=== PATIENT | female | born 1935 | race Caucasian/White ===

== ENCOUNTER → 2017-04-28 | Outpatient (CLI) | payer MEDICARE ==
--- NOTE | 2017-04-28 13:12 | XR ---
EXAMINATION TYPE: XR abdomen 1V DATE OF EXAM: 04/28/2017 COMPARISON: 08/19/2016 HISTORY: Right-sided pain TECHNIQUE: One view abdominal series FINDINGS: The osseous structures are intact. The bowel gas pattern is nonspecific. Extensive retained fecal de bris. Scoliosis and multilevel degenerative disc disease noted. Calcifications the pelvis are nonspec ific and there is arthropathy of the hips. IMPRESSION: 1. Nonspecific abdomen
== END | disposition home or self-care (01) ==
LOC: RADXRMAIN 12:42
PROVIDERS: ATTEND Urology
DX: N20.0 Calculus of kidney (principal)
CPT/HCPCS: 74000

== ENCOUNTER 2018-02-23 06:10 | Emergency (ER) | payer MEDICARE ==
[2018-02-23 06:16] VITALS: RESP 16
[2018-02-23] MEDS ORDERED: SODIUM CHLORIDE 0.9% 1,000 ML IV STA ×2 (08:06)
[2018-02-23] MEDS ORDERED: KETOROLAC 30 MG/ML 1 ML VIAL IVP STA (08:06)
[2018-02-23] MEDS ORDERED: ORPHENADRINE 30 MG/ML 2 ML VIAL IVP STA (08:07)
[2018-02-23 08:48] LABS: Basophils % (A) 0 %; Eosinophils # (A) 0.1 k/uL (0-0.7); Eosinophils % (A) 2 %; HCT 45.8 % (34.0-46.0); Lymphocytes # (A) 1.3 k/uL (1.0-4.8); Lymphocytes % (A) 21 %; MCH 32.3 pg (25.0-35.0); MCHC 32.8 g/dL (31.0-37.0); MCV 98.6 fL (80.0-100.0); Mean Platelet Volume 7.3; Monocytes # (A) 0.5 k/uL (0-1.0); Monocytes % (A) 8 %; Neutrophils # (A) 4.3 k/uL (1.3-7.7); Neutrophils % (A) 68 %; Platelet Count 276 k/uL (150-450); RBC 4.64 m/uL (3.80-5.40); RDW 12.9 % (11.5-15.5); WBC 6.2 k/uL (3.8-10.6)
[2018-02-23 08:53] LABS: Appearance,Urine Clear (Clear); Bacteria,Urine Many /hpf; Bilirubin,Urine Negative (Negative); Blood,Urine Negative (Negative); Color,Urine Light Yellow; Glucose,Urine (UA) Negative (Negative); Ketones,Urine Negative (Negative); Leukocyte Esterase,Urine Small (Negative); Mucus,Urine Rare /hpf; Nitrite,Urine Negative (Negative); PH, Urine 7.5 (5.0-8.0); Protein,Urine Negative (Negative); Specific Gravity,Urine 1.004 (1.001-1.035); Squamous Epithelial Cell,Urine <1 /hpf (0-4); Urobilinogen,Urine <2.0 mg/dL (<2.0); WBC,Urine 1 /hpf (0-5)
[2018-02-23 08:55] LABS: Albumin 3.4 g/dL (3.5-5.0); Calcium 8.7 mg/dL (8.4-10.2); Potassium 4.4 mmol/L (3.5-5.1); Total Bilirubin 0.4 mg/dL (0.2-1.3); Total Protein 5.6 g/dL (6.3-8.2)
--- NOTE | 2018-02-23 09:03 | ED ---
Back Pain HPI <Parish Ballesteros - Last Filed: 02/23/18 11:08> - General Source: patient, RN notes reviewed, old records reviewed Limitations: no limitations <Madiha Muñoz - Last Filed: 02/24/18 13:57> - General Chief Complaint: Back Pain/Injury Stated Complaint: Back Pain Time Seen by Provider: 02/23/18 07:46 - History of Present Illness Initial Comments: Patient is an 82-year-old female presents emergency Department chief complaint of lower back pain. Patient reports that she's had a history of kidney stones feel like her sent in with similar to today's appears reports a history of urinary incontinence. She states that now she feels like the urgency to go to the bathroom. She denies any fever or chills. No nausea or vomiting. She states the pain started yesterday evening and she thought it was more muscle issue but then it persisted she was concerned maybe of a kidney stone again. Her urologist is Dr. Park. (Madiha Muñoz) - Related Data Home Medications Medication Instructions Recorded Confirmed Diltiazem HCl [Diltiazem 24Hr ER] 180 mg PO DAILY 07/04/15 02/23/18 Pravastatin Sodium [Pravachol] 40 mg PO HS 07/04/15 02/23/18 Aspirin 81 mg PO DAILY 08/12/15 02/23/18 Fluticasone Nasal [place] [Flonase 2 spray EA NOSTRIL DAILY PRN 08/13/15 02/23/18 Nasal [place]] Apixaban [Eliquis] 2.5 mg PO BID 02/23/18 02/23/18 Previous Rx's Medication Instructions Recorded Cyclobenzaprine [Flexeril] 10 mg PO TID #12 tab 02/23/18 HYDROcodone/APAP 5-325MG [[place] 1 tab PO Q6HR PRN #10 tab 02/23/18 5-325] Nitrofurantoin Monohyd/M-Cryst 100 mg PO Q12HR #14 cap 02/23/18 [Macrobid] Allergies Allergy/AdvReac Type Severity Reaction Status Date / Time codeine Allergy Rash/Hives Verified 02/23/18 07:53 amoxicillin trihydrate AdvReac Nausea & Verified 02/23/18 07:53 [From Augmentin] Vomiting & Diarrhea potassium clavulanate AdvReac Nausea & Verified 02/23/18 07:53 [From Augmentin] Vomiting & Diarrhea Review of Systems ROS Other: All systems not noted in ROS Statement are negative. <Parish Ballesteros - Last Filed: 02/23/18 11:08> ROS Other: All systems not noted in ROS Statement are negative. <WandaMerryMadiha - Last Filed: 02/24/18 13:57> ROS Statement: Those systems with pertinent positive or pertinent negative responses have been documented in the HPI. Past Medical History Past Medical History: Atrial Fibrillation, Asthma, Hyperlipidemia, Myocardial Infarction ([place]), Pneumonia Additional Past Medical History / Comment(s): kidney stone, uti's most recently tx 05-28-16 with macrobid that didn't work and then levaquin-completed the abx., falls Last Myocardial Infarction Date:: 2010 History of Any Multi-Drug Resistant Organisms: ESBL Date of last positivie culture/infection: 06/10/16 MDRO Source:: urine E.coli Past Surgical History: Heart Catheterization With Stent, Joint Replacement, Tonsillectomy Additional Past Surgical History / Comment(s): SOTO KNEE REPLACEMENT, KIDNEY STONE REMOVAL Past Anesthesia/Blood Transfusion Reactions: No Reported Reaction Date of Last Stent Placement:: 2010 Past Psychological History: No Psychological Hx Reported Smoking Status: Never smoker - Past Family History Mother Family Medical History: Cancer Additional Family Medical History / Comment(s): breast cancer at age 75-lived to be 94 Father Family Medical History: Congestive Heart Failure (CHF) Additional Family Medical History / Comment(s): from CHF <Madiha Muñoz - Last Filed: 02/24/18 13:57> General Exam <Parish Ballesteros - Last Filed: 02/23/18 11:08> Limitations: no limitations Head exam: Present: atraumatic, normocephalic, normal inspection Eye exam: Present: normal appearance, PERRL, EOMI. Absent: scleral icterus, conjunctival injection, periorbital swelling ENT exam: Present: normal exam, mucous membranes moist Neck exam: Present: normal inspection. Absent: tenderness, meningismus, lymphadenopathy Respiratory exam: Present: normal lung sounds bilaterally. Absent: respiratory distress, wheezes, rales, rhonchi, stridor Cardiovascular Exam: Present: regular rate, normal rhythm, normal heart sounds. Absent: systolic murmur, diastolic murmur, rubs, gallop, clicks GI/Abdominal exam: Present: soft, tenderness (suprapubic), normal bowel sounds. Absent: distended, guarding, rebound, rigid Extremities exam: Present: normal inspection, full ROM, normal capillary refill. Absent: tenderness, pedal edema, joint swelling, calf tenderness Back exam: Present: normal inspection, tenderness (lumbar spinal tenderness) Neurological exam: Present: alert, oriented X3, CN II-XII intact Psychiatric exam: Present: normal affect, normal mood Skin exam: Present: warm, dry, intact, normal color. Absent: rash <Madiha Muñoz - Last Filed: 02/24/18 13:57> - General Exam Comments Initial Comments: 82-year-old female. Alert and oriented. Laying in stretcher comfortably. No acute distress. (Madiha Muñoz) Course <Parish Ballesteros - Last Filed: 02/23/18 11:08> <Madiha Muñoz - Last Filed: 02/24/18 13:57> Vital Signs 02/23/18 02/23/18 06:13 10:47 Temperature 97.6 F 98.1 F Pulse Rate 88 82 Respiratory 16 16 Rate Blood Pressure 134/79 164/75 O2 Sat by Pulse 96 Oximetry - Reevaluation(s) Reevaluation #1: 02/23/18 10:42 PA supervision: I did personally evaluate the patient presentation and care and do agree with the assessment including the history and physical as well as the plan. Imaging shows no evidence of acute findings lab work was essentially unremarkable. 02/23/18 11:08 (Parish Ballesteros) Medical Decision Making - Lab Data Result diagrams: 02/23/18 07:13 02/23/18 07:13 <Parish Ballesteros - Last Filed: 02/23/18 11:08> - Lab Data Result diagrams: 02/23/18 07:13 02/23/18 07:13 - Radiology Data Radiology results: report reviewed <Madiha Muñoz - Last Filed: 02/24/18 13:57> - Medical Decision Making 82-year-old feel presents return to play and lower back pain to the pubic pain. Complains of urinary frequency and dysuria. Patient's labwork was reviewed and unremarkable. She did have during her urine. We'll send this for culture. Patient for UTI preemptively. She is incontinent. Started on Macrobid. The rest of her lab work was unremarkable. I did complete a CT abdomen and pelvis without contrast. No evidence of kidney stones or any intra-abdominal abnormalities. Patient's pain. She does have degenerative disc disease and facet arthropathy L2-L3. CT report is concluded in chart. Inform Patient of the results. Most likely muscular skeletal origin for patient's pain. We'll discharge her with muscle relaxers and pain medication. Advised to follow-up with PCP. All questions answered return parameters were discussed. (Madiha Muñoz) - Lab Data Lab Results 02/23/18 02/23/18 02/23/18 Range/Units 07:13 07:13 07:13 WBC 6.2 (3.8-10.6) k/uL RBC 4.64 (3.80-5.40) m/uL Hgb 15.0 (11.4-16.0) gm/dL Hct 45.8 (34.0-46.0) % MCV 98.6 (80.0-100.0) fL MCH 32.3 (25.0-35.0) pg MCHC 32.8 (31.0-37.0) g/dL RDW 12.9 (11.5-15.5) % Plt Count 276 (150-450) k/uL Neutrophils % 68 % Lymphocytes % 21 % Monocytes % 8 % Eosinophils % 2 % Basophils % 0 % Neutrophils # 4.3 (1.3-7.7) k/uL Lymphocytes # 1.3 (1.0-4.8) k/uL Monocytes # 0.5 (0-1.0) k/uL Eosinophils # 0.1 (0-0.7) k/uL Basophils # 0.0 (0-0.2) k/uL Sodium 141 (137-145) mmol/L Potassium 4.4 (3.5-5.1) mmol/L Chloride 106 (98-107) mmol/L Carbon Dioxide 27 (22-30) mmol/L Anion Gap 8 mmol/L BUN 15 (7-17) mg/dL Creatinine 0.83 (0.52-1.04) mg/dL Est GFR (CKD-EPI)AfAm 77 (>60 ml/min/1.73 sqM) Est GFR (CKD-EPI)NonAf 67 (>60 ml/min/1.73 sqM) Glucose 92 (74-99) mg/dL Calcium 8.7 (8.4-10.2) mg/dL Total Bilirubin 0.4 (0.2-1.3) mg/dL AST 16 (14-36) U/L ALT 27 (9-52) U/L Alkaline Phosphatase 59 (38-126) U/L Total Protein 5.6 L (6.3-8.2) g/dL Albumin 3.4 L (3.5-5.0) g/dL Urine Color Light Yellow Urine Appearance Clear (Clear) Urine pH 7.5 (5.0-8.0) Ur Specific [place] 1.004 (1.001-1.035) Urine Protein Negative (Negative) Urine Glucose (UA) Negative (Negative) Urine Ketones Negative (Negative) Urine Blood Negative (Negative) Urine Nitrite Negative (Negative) Urine Bilirubin Negative (Negative) Urine Urobilinogen <2.0 (<2.0) mg/dL Ur Leukocyte Esterase Small H (Negative) Urine WBC 1 (0-5) /hpf Ur Squamous Epith Cells <1 (0-4) /hpf Urine Bacteria Many H (None) /hpf Urine Mucus Rare H (None) /hpf - Radiology Data CT abdomen and pelvis without contrast shows evidence of moderate multilevel degenerative changes within the osseous structures with moderate to severe neural foraminal narrowing of L2-L3 on the left and grade 1 anterolisthesis of L4-L5. Likely on a degenerative basis. No acute fractures seen or malalignment comparison to prior. Colonic stasis and small bowel feces sign may relate to ileus or incompetent ileocecal valve. No evidence of bowel obstruction resolution the previous seen hydronephrosis. (Madiha Muñoz) Disposition <Parish Ballesteros - Last Filed: 02/23/18 11:08> Is patient prescribed a controlled substance at d/c from ED?: Yes When asked, does pt state using other controlled substances?: No If prescribed controlled substance>3 days was MAPS reviewed?: Yes If opioid is for acute pain is fill amount 7 days or less?: Yes If Rx opioid, was Start Talking consent form obtained?: No Time of Disposition: 10:21 <Madiha Muñoz - Last Filed: 02/24/18 13:57> Clinical Impression: Back pain, UTI (urinary tract infection), DDD (degenerative disc disease) Disposition: HOME SELF-CARE Condition: Good Instructions: Acute Low Back Pain (ED) Additional Instructions: Follow up with PCP and return to ED if any alarming signs or symptoms occur. Take medication as prescribed. Prescriptions: Cyclobenzaprine [Flexeril] 10 mg PO TID #12 tab HYDROcodone/APAP 5-325MG [[place] 5-325] 1 tab PO Q6HR PRN #10 tab PRN Reason: Pain Nitrofurantoin Monohyd/M-Cryst [Macrobid] 100 mg PO Q12HR #14 cap Referrals: None,Stated [Primary Care Provider] - 1-2 days Karlie Chowdhury MD [STAFF PHYSICIAN] - 1-2 days
--- NOTE | 2018-02-23 09:30 | CT ---
EXAMINATION TYPE: CT abdomen pelvis wo con DATE OF EXAM: 02/23/2018 COMPARISON: 06/11/2016 HISTORY: Low back pain CT DLP: 524.5 mGycm Automated exposure control for dose reduction was used. TECHNIQUE: Helical acquisition of images was performed from the lung bases through the pelvis. FINDINGS: LUNG BASES: No significant abnormality is appreciated. Coronary artery and mitral valve as well as de scending thoracic artery calcifications are partially visualized. A small hiatal hernia is seen. Subc utaneous nodule of the inferior chest overlying the xiphoid process could relate to a sebaceous cyst. LIVER/GB: There is a nodular contour of the liver peripherally suggesting underlying hepatocellular d isease. Small paraesophageal varices are also seen. No cholelithiasis. PANCREAS: Mild pancreatic parenchyma atrophy without ductal dilatation. SPLEEN: No significant abnormality is seen. ADRENALS: No significant abnormality is seen. KIDNEYS: There is been removal of the right ureteral stent in the interim. 2 mm right lower pole nono bstructing renal calculus is present. Bilateral lobulated appearance of kidneys is seen in evaluation for renal masses suboptimal given lack of intravenous contrast. Previously seen right-sided hydronep hrosis has resolved in the interim. No ureteral dilatation or urinary bladder calculi are seen. FREE AIR: No free air is visualized RETROPERITONEAL ADENOPATHY: No greater than 1 cm short axis lymph nodes are noted within the abdomen or pelvis. URINARY BLADDER: No significant abnormality is seen. The previously seen punctate focus of air has r esolved. OSSEOUS STRUCTURES: Moderate degenerative changes of the thoracolumbar spine, femoral acetabular johnnie nts and sacroiliac joints are seen. There is grade 1 anterolisthesis of L4 on L5, likely on a degener ative basis as this was present on the prior of 06/11/2016. There are at least disc bulges from L1 th rough S1 with no significant neural foraminal narrowing at L2-L3 on the left (moderate to severe). BOWEL: Numerous colonic diverticula are present without pericolonic fat stranding. Small bowel feces sign is seen within nondilated loops of small bowel in the low pelvis. Cecal positioning is similar to the prior. Small bowel feces sign is also noted within the terminal ileum which may relate to an i ncompetent ileocecal valve with reflux or ileus. No large or small bowel dilatation. Fecal stasis is again noted. OTHER: There is a small fat filled umbilical hernia. Presacral edema has nearly resolved. Moderate ca lcific atheromatous changes are seen of the abdominal aorta and its branches, which is normal course and caliber. IMPRESSION: 1. IN REGARDS TO THE PATIENT'S BACK PAIN THERE ARE MODERATE MULTILEVEL DEGENERATIVE CHANGES OF THE OS SEOUS STRUCTURES WITH MODERATE TO SEVERE NEURAL FORAMINAL NARROWING AT L2-L3 ON THE LEFT AND GRADE 1 ANTEROLISTHESIS OF L4 ON L5, LIKELY ON A DEGENERATIVE BASIS. NO ACUTE FRACTURE IS SEEN OR NEW MALALIG NMENT IN COMPARISON TO THE PRIOR. 2. COLONIC STASIS AND SMALL BOWEL FECES SIGN THAT MAY RELATE TO ILEUS OR INCOMPETENT ILEOCECAL VALVE. . NO EVIDENCE OF BOWEL OBSTRUCTION. 3. RESOLUTION THE PREVIOUSLY SEEN HYDRONEPHROSIS. BILATERAL LOBULATED CONTOUR OF THE KIDNEYS IS AGAIN SEEN, INCOMPLETELY EVALUATED WITHOUT INTRAVENOUS CONTRAST. THIS PATIENT CANNOT RECEIVE CONTRAST ULTR ASOUND COULD BE PERFORMED FOR EVALUATION OF RENAL MASS ON A NONEMERGENT BASIS.
[2018-02-23] MEDS ORDERED: HYDROcodone/APAP 5-325MG 1 EACH TAB PO STA (10:11)
[2018-02-23 10:49] VITALS: BP 164/75; PULSE 82; TEMP 98.1
== END 2018-02-23 10:49 | disposition home or self-care (01) ==
LOC: EC 06:10
DX: N39.0 Urinary tract infection, site not specified (principal); M51.36 Other intervertebral disc degeneration, lumbar region; M47.816 Spondylosis without myelopathy or radiculopathy, lumbar region; M99.73 Connective tissue and disc stenosis of intervertebral foramina of lumbar region; M43.16 Spondylolisthesis, lumbar region; K59.8 Other specified functional intestinal disorders; M46.96 Unspecified inflammatory spondylopathy, lumbar region; I48.91 Unspecified atrial fibrillation; E78.5 Hyperlipidemia, unspecified; J45.909 Unspecified asthma, uncomplicated; I25.2 Old myocardial infarction; Z79.01 Long term (current) use of anticoagulants; Z79.82 Long term (current) use of aspirin; Z79.899 Other long term (current) drug therapy; Z88.0 Allergy status to penicillin; Z88.5 Allergy status to narcotic agent
CPT/HCPCS: 99284; 96374; 96375; 96361 ×2; 36415; 80053; 85025; 81001; 87086; 74176; J2360; J1885

== ENCOUNTER → 2018-09-05 | Outpatient (CLI) | payer MEDICARE ==
[2018-09-05 10:58] LABS: Blood Urea Nitrogen 18 mg/dL (7-17)
--- NOTE | 2018-09-07 06:48 | MR ---
EXAMINATION TYPE: MR shoulder RT wo/w con DATE OF EXAM: 09/05/2018 COMPARISON: None HISTORY: evaluate RC, Glenoid and humeral, possible lesions, TECHNIQUE: Multiplanar, multisequence images of the right shoulder is performed with 7 mL intravenous Gadavist gadolinium contrast. FINDINGS: There is a large rotator cuff tear with retraction of the supraspinatus tendon. The AC joint is intac t. There is hypertrophic spurring and subacromial joint space narrowing. There is superior subluxatio n of the humeral head. There is mild shoulder joint effusion. The glenoid queenie appear intact. Subsca pularis tendon is intact. Biceps tendon appears intact. I see no fracture. There is no evidence of fo azael bone destruction. There is edema in the subscapularis muscle. There is hypertrophic spurring on t he humeral head. There is mild hypertrophic spurring of the glenoid queenie. I see no significant patho logic enhancement. IMPRESSION: There is a large rotator cuff tear with retraction of the supraspinatus tendon. There is significant subacromial impingement. There is spurring at the AC joint with subacromial impingement. Osteoarthrit is in the glenohumeral joint. Edema in the subscapularis muscle consistent with myositis. Mild shoulder joint effusion. No fracture seen..
== END | disposition home or self-care (01) ==
LOC: RADMRIMAIN 10:11
PROVIDERS: ATTEND Orthopaedic Surgery
DX: M75.101 Unspecified rotator cuff tear or rupture of right shoulder, not specified as traumatic (principal); M25.711 Osteophyte, right shoulder; M75.41 Impingement syndrome of right shoulder; M19.011 Primary osteoarthritis, right shoulder; M25.411 Effusion, right shoulder
CPT/HCPCS: 82565; 84520; 36415; 73223; A9585

== ENCOUNTER → 2019-09-01 | Outpatient (CLI) | payer MEDICARE ==
--- NOTE | 2019-09-01 15:22 | MR ---
EXAMINATION TYPE: MR lumbar spine wo con DATE OF EXAM: 09/01/2019 COMPARISON: None HISTORY: Radiculopathy Multiplanar multiecho imaging of the lumbar spine was performed without contrast. There is 6 mm anterior subluxation of L4 in relation L5. There is narrowing of the disc spaces throug hout the lumbar spine with relative sparing at L5-S1. There is no compression fracture. There is no l umbar paraspinal mass. I see no bony destructive process. There is posterior disc herniation at L2-3 and L3-4. There is moderately severe spinal stenosis at L4-5 due to facet arthropathy and subluxation . There is moderate lateral recess stenosis on the right side at L3-4. There is severe right side L3- 4 neural foraminal stenosis. There is bilateral mild lateral recess stenosis at L2-3. IMPRESSION: Multilevel spondylotic changes. First-degree L4-5 spondylolisthesis. Moderately severe spinal stenosi s at L4-5. Mild posterior disc herniations as above. No acute bony abnormality.
== END | disposition home or self-care (01) ==
LOC: RADMRIMAIN 12:30
PROVIDERS: ATTEND Physical Medicine & Rehabilitation
DX: M48.061 Spinal stenosis, lumbar region without neurogenic claudication (principal); M43.16 Spondylolisthesis, lumbar region; M47.26 Other spondylosis with radiculopathy, lumbar region; M51.16 Intervertebral disc disorders with radiculopathy, lumbar region; M41.26 Other idiopathic scoliosis, lumbar region
CPT/HCPCS: 72148

== ENCOUNTER → 2020-01-18 | Outpatient (CLI) | payer MEDICARE | END | disposition home or self-care (01) | LOC: LABWHC1 10:26 | PROVIDERS: ATTEND Physical Medicine & Rehabilitation | DX: Z11.59 Encounter for screening for other viral diseases (principal) ==

== ENCOUNTER 2021-11-03 15:58 | Inpatient (IN) | payer MEDICARE ==
[2021-11-03] MEDS ORDERED: ONDANSETRON 4 MG/2 ML VIAL IVP STA (19:37)
[2021-11-03] MEDS ORDERED: FAMOTIDINE 20 MG/2 ML VIAL IV STA (19:37)
[2021-11-03] MEDS ORDERED: SODIUM CHLORIDE 0.9% 500 ML 500 ML IV STA (19:37)
--- NOTE | 2021-11-03 19:40 | ED ---
General Adult HPI - General Chief complaint: Urogenital Stated complaint: UTI Time Seen by Provider: 11/03/21 19:15 Source: patient, family, RN notes reviewed Mode of arrival: ambulatory Limitations: no limitations - History of Present Illness Initial comments: Patient is a pleasant 86-year-old male presenting to the emergency department with concern for urinary tract infection. Onset of symptoms was 3-4 days ago. Patient has had some nausea with occasional vomiting. Patient has been fatigued. Patient did have fever once. Patient felt chilled and shaky. Patient went to her doctor today and had urinalysis concerning for UTI. Patient was not started on antibiotics secondary to concerns of vomiting and she was advised to come to the emergency department. Patient has no dysuria. No abdominal pain. No cough or dyspnea. - Related Data Home Medications Medication Instructions Recorded Confirmed Pravastatin Sodium [Pravachol] 40 mg PO HS 07/04/15 11/03/21 Aspirin 81 mg PO DAILY 08/12/15 11/03/21 Fluticasone Nasal [place] [Flonase 2 spray EA NOSTRIL DAILY 08/13/15 11/03/21 Nasal [place]] Apixaban [Eliquis] 2.5 mg PO BID 02/23/18 11/03/21 Acetaminophen [Tylenol Arthritis] 650 - 1,300 mg PO Q8H PRN 11/03/21 11/03/21 Alendronate Sodium [Fosamax] 70 mg PO Q7D 11/03/21 11/03/21 Ascorbic Acid [Vitamin C] 1,000 mg PO DAILY 11/03/21 11/03/21 Cholecalciferol [Vitamin D3 (25 25 mcg PO DAILY 11/03/21 11/03/21 Mcg = 1000 Iu)] Cyanocobalamin (Vitamin B-12) 1,000 mcg PO DAILY 11/03/21 11/03/21 [Vitamin B-12] Diltiazem HCl [Diltiazem HCl 24Hr 180 mg PO DAILY 11/03/21 11/03/21 ER (CD)] Melatonin 10 mg PO HS 11/03/21 11/03/21 Allergies Allergy/AdvReac Type Severity Reaction Status Date / Time codeine Allergy Rash/Hives Verified 11/03/21 17:33 amoxicillin trihydrate AdvReac Nausea & Verified 11/03/21 17:33 [From Augmentin] Vomiting & Diarrhea potassium clavulanate AdvReac Nausea & Verified 11/03/21 17:33 [From Augmentin] Vomiting & Diarrhea Review of Systems ROS Statement: Those systems with pertinent positive or pertinent negative responses have been documented in the HPI. ROS Other: All systems not noted in ROS Statement are negative. Constitutional: Reports: as per HPI, fever, chills Eyes: Denies: eye pain ENT: Denies: ear pain Respiratory: Denies: cough, dyspnea Cardiovascular: Denies: chest pain Endocrine: Reports: fatigue Gastrointestinal: Reports: nausea, vomiting. Denies: abdominal pain Genitourinary: Denies: dysuria Musculoskeletal: Denies: back pain Skin: Denies: rash Neurological: Denies: weakness Past Medical History Past Medical History: Atrial Fibrillation, Asthma, Hyperlipidemia, Myocardial In farction ([place]), Pneumonia Additional Past Medical History / Comment(s): kidney stone, uti's most recently tx 05-28-16 with macrobid that didn't work and then levaquin-completed the abx., falls Last Myocardial Infarction Date:: 2010 History of Any Multi-Drug Resistant Organisms: ESBL Date of last positivie culture/infection: 06/10/16 MDRO Source:: urine E.coli Past Surgical History: Heart Catheterization With Stent, Joint Replacement, Tonsillectomy Additional Past Surgical History / Comment(s): SOTO KNEE REPLACEMENT, KIDNEY STONE REMOVAL Past Anesthesia/Blood Transfusion Reactions: No Reported Reaction Date of Last Stent Placement:: 2010 Past Psychological History: No Psychological Hx Reported Smoking Status: Never smoker Past Alcohol Use History: Daily Past Drug Use History: None Reported - Past Family History Mother Family Medical History: Cancer Additional Family Medical History / Comment(s): breast cancer at age 75-lived to be 94 Father Family Medical History: Congestive Heart Failure (CHF) Additional Family Medical History / Comment(s): from CHF General Exam Limitations: no limitations General appearance: alert, in no apparent distress Head exam: Present: normocephalic Eye exam: Present: normal appearance Respiratory exam: Present: normal lung sounds bilaterally Cardiovascular Exam: Present: regular rate, normal rhythm GI/Abdominal exam: Present: soft. Absent: tenderness Extremities exam: Present: normal inspection Neurological exam: Present: alert, CN II-XII intact. Absent: motor sensory deficit Expanded Motor strength exam: RUE: 5, LUE: 5, RLE: 5, LLE: 5 Psychiatric exam: Present: normal affect, normal mood Skin exam: Present: normal color Course Vital Signs 11/03/21 17:34 Temperature 98.0 F Pulse Rate 93 Respiratory 20 Rate Blood Pressure 112/58 O2 Sat by Pulse 94 L Oximetry - Reevaluation(s) Reevaluation #1: 11/03/21 21:57 Patient does meet sepsis criteria diagnosed at 9:57 PM. Blood culture and lactic acid have been ordered. IV antibiotics will be ordered. Medical Decision Making - Medical Decision Making Patient reevaluated. Patient and family updated. Case discussed with Dr. Allan, who will admit For hospital call - Lab Data Result diagrams: 11/03/21 21:24 Lab Results 11/03/21 11/03/21 11/03/21 Range/Units 21:24 21:24 21:24 WBC 15.1 H (3.8-10.6) k/uL RBC 4.38 (3.80-5.40) m/uL Hgb 14.6 (11.4-16.0) gm/dL Hct 43.8 (34.0-46.0) % MCV 100.2 H (80.0-100.0) fL MCH 33.4 (25.0-35.0) pg MCHC 33.4 (31.0-37.0) g/dL RDW 12.7 (11.5-15.5) % Plt Count 202 (150-450) k/uL MPV 8.3 Neutrophils % 87 % Lymphocytes % 6 % Monocytes % 5 % Eosinophils % 0 % Basophils % 0 % Neutrophils # 13.1 H (1.3-7.7) k/uL Lymphocytes # 0.9 L (1.0-4.8) k/uL Monocytes # 0.7 (0-1.0) k/uL Eosinophils # 0.1 (0-0.7) k/uL Basophils # 0.1 (0-0.2) k/uL PT 10.0 (9.0-12.0) sec INR 0.9 (<1.2) APTT 31.1 H (22.0-30.0) sec Plasma Lactic Acid [place] (0.7-2.0) mmol/L Urine Color Yellow Urine Appearance Turbid H (Clear) Urine pH 5.5 (5.0-8.0) Ur Specific [place] 1.015 (1.001-1.035) Urine Protein 1+ H (Negative) Urine Glucose (UA) Negative (Negative) Urine Ketones Negative (Negative) Urine Blood Moderate H (Negative) Urine Nitrite Negative (Negative) Urine Bilirubin Negative (Negative) Urine Urobilinogen 2.0 (<2.0) mg/dL Ur Leukocyte Esterase Large H (Negative) Urine RBC 22 H (0-5) /hpf Urine WBC >182 H (0-5) /hpf Urine WBC Clumps Many H (None) /hpf Ur Squamous Epith Cells 1 (0-4) /hpf Urine Bacteria Occasional H (None) /hpf Urine Mucus Rare H (None) /hpf 11/03/21 Range/Units 21:24 WBC (3.8-10.6) k/uL RBC (3.80-5.40) m/uL Hgb (11.4-16.0) gm/dL Hct (34.0-46.0) % MCV (80.0-100.0) fL MCH (25.0-35.0) pg MCHC (31.0-37.0) g/dL RDW (11.5-15.5) % Plt Count (150-450) k/uL MPV Neutrophils % % Lymphocytes % % Monocytes % % Eosinophils % % Basophils % % Neutrophils # (1.3-7.7) k/uL Lymphocytes # (1.0-4.8) k/uL Monocytes # (0-1.0) k/uL Eosinophils # (0-0.7) k/uL Basophils # (0-0.2) k/uL PT (9.0-12.0) sec INR (<1.2) APTT (22.0-30.0) sec Plasma Lactic Acid [place] 1.3 (0.7-2.0) mmol/L Urine Color Urine Appearance (Clear) Urine pH (5.0-8.0) Ur Specific [place] (1.001-1.035) Urine Protein (Negative) Urine Glucose (UA) (Negative) Urine Ketones (Negative) Urine Blood (Negative) Urine Nitrite (Negative) Urine Bilirubin (Negative) Urine Urobilinogen (<2.0) mg/dL Ur Leukocyte Esterase (Negative) Urine RBC (0-5) /hpf Urine WBC (0-5) /hpf Urine WBC Clumps (None) /hpf Ur Squamous Epith Cells (0-4) /hpf Urine Bacteria (None) /hpf Urine Mucus (None) /hpf Critical Care Time Critical Care Time: Yes Total Critical Care Time: 32 Disposition Clinical Impression: UTI (urinary tract infection), Sepsis Disposition: ADMITTED IP TO THIS HOSP Is patient prescribed a controlled substance at d/c from ED?: No Referrals: Noelle Marquez MD [Primary Care Provider] - 1-2 days
[2021-11-03 21:39] LABS: Basophils # (A) 0.1 k/uL (0-0.2); Basophils % (A) 0 %; Eosinophils # (A) 0.1 k/uL (0-0.7); Eosinophils % (A) 0 %; HCT 43.8 % (34.0-46.0); HGB 14.6 gm/dL (11.4-16.0); Lymphocytes # (A) 0.9 k/uL (1.0-4.8); Lymphocytes % (A) 6 %; MCH 33.4 pg (25.0-35.0); MCHC 33.4 g/dL (31.0-37.0); MCV 100.2 fL (80.0-100.0); Mean Platelet Volume 8.3; Monocytes # (A) 0.7 k/uL (0-1.0); Monocytes % (A) 5 %; Neutrophils # (A) 13.1 k/uL (1.3-7.7); Neutrophils % (A) 87 %; Platelet Count 202 k/uL (150-450); RBC 4.38 m/uL (3.80-5.40); RDW 12.7 % (11.5-15.5); WBC 15.1 k/uL (3.8-10.6)
--- NOTE | 2021-11-03 21:41 | XR ---
EXAMINATION TYPE: XR chest 2V DATE OF EXAM: 11/03/2021 COMPARISON: 06/12/2016 HISTORY: Fever TECHNIQUE: 2 views FINDINGS: There is no heart failure nor confluent pneumonic infiltrate. Costophrenic angles are clear . There are no hilar masses. IMPRESSION: No active cardiopulmonary disease. There is clearing of the minimal pleural reaction late ral left lung base compared to old exam.
[2021-11-03 21:43] LABS: Appearance,Urine Turbid (Clear); Bacteria,Urine Occasional /hpf; Bilirubin,Urine Negative (Negative); Blood,Urine Moderate (Negative); Color,Urine Yellow; Glucose,Urine (UA) Negative (Negative); Ketones,Urine Negative (Negative); Leukocyte Esterase,Urine Large (Negative); Mucus,Urine Rare /hpf; Nitrite,Urine Negative (Negative); PH, Urine 5.5 (5.0-8.0); Protein,Urine 1+ (Negative); RBC,Urine 22 /hpf (0-5); Specific Gravity,Urine 1.015 (1.001-1.035); Squamous Epithelial Cell,Urine 1 /hpf (0-4); WBC,Urine >182 /hpf (0-5)
[2021-11-03 21:54] LABS: Albumin 3.2 g/dL (3.5-5.0); Calcium 8.3 mg/dL (8.4-10.2); INR 0.9 (<1.2); Partial Thromboplastin Time 31.1 sec (22.0-30.0); Total Bilirubin 0.9 mg/dL (0.2-1.3); Total Protein 6.1 g/dL (6.3-8.2)
[2021-11-03] MEDS ORDERED: NALOXONE 0.4 MG/ML 1 ML VIAL IV PRN (21:58)
[2021-11-03] MEDS ORDERED: ONDANSETRON 4 MG/2 ML VIAL IVP PRN (21:58)
[2021-11-03 22:21] LABS: Potassium 4.6 mmol/L (3.5-5.1)
[2021-11-03] MEDS: ACETAMINOPHEN TAB 325 MG TAB PO PRN (22:29)
[2021-11-03] MEDS: SODIUM CHLORIDE 0.9% 1,000 ML IV SCH (22:30)
[2021-11-04 07:58] LABS: Basophils % (A) 0 %; Eosinophils # (A) 0.1 k/uL (0-0.7); Eosinophils % (A) 0 %; HGB 14.1 gm/dL (11.4-16.0); Lymphocytes # (A) 0.5 k/uL (1.0-4.8); Lymphocytes % (A) 3 %; Macrocytosis Slight; Mean Platelet Volume 8.1; Monocytes # (A) 0.8 k/uL (0-1.0); Monocytes % (A) 5 %; Neutrophils # (A) 14.4 k/uL (1.3-7.7); Neutrophils % (A) 90 %; Platelet Count 197 k/uL (150-450); RBC 4.28 m/uL (3.80-5.40); RDW 12.9 % (11.5-15.5)
[2021-11-04] MEDS: SODIUM CHLORIDE 0.9% 1,000 ML IV SCH ×3 (10:49→22:23)
[2021-11-04] MEDS: PANTOPRAZOLE 40 MG/10 ML VIAL IV SCH (10:50)
[2021-11-04] MEDS ORDERED: ACETAMINOPHEN TAB 500 MG TAB PO PRN (13:38)
[2021-11-04] MEDS ORDERED: NON FORMULARY DRUG (Alendronate Sodium [Fosamax] 70 MG Tablet) PO SCH (13:45)
--- NOTE | 2021-11-04 15:20 | P.HPIM ---
History of Present Illness H&P Date: 11/04/21 This is a pleasant 86-year-old female who presented to the emergency department with reports of increasing weakness, a few episodes of vomiting, decreased oral intake and possible urinary tract infection. Patient did follow with her primary care provider at [facility] although unable to provide a sample at that time and was instructed if having any worsening symptoms to go to the nearest emergency room. Patient reports to being incontinent and has been for years. Patient does have a past medical history of atrial fibrillation, asthma, hyperlipidemia, myocardial infarction, kidney stones and frequent urinary tract infections in the past. Patient does follow with Dr. 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 Patient's oral intake has been decreased with not much of an appetite and patient feels overall generalized weakness. Patient was admitted with sepsis criteria and UTI workup. Patient was initiated on IV antibiotics in the form of ceftriaxone and will continue. Urine cultures are pending. Blood cultures showing gram-negative rods and Gram stain is showing gram-negative bacilli which is currently pending. Repeat blood cultures ordered and will continue to monitor closely. Chest x-ray on admission shows no active cardiopulmonary disease and there is some clearing of the minimal pleural reaction lateral left lung base compared to old exam. Labs on hospital presentation showed a white blood count of 15.1, hemoglobin 14.6, sodium 133, potassium 4.6, BUN 33, creatinine 1.41, calcium 8.3. Review Of Systems: Constitutional: Reports fever and chills, no night sweats. No weight change. Reports weakness, fatigue and lethargy. No daytime sleepiness. EENT: No headache. No blurred vision or double vision, no loss of vision. No loss of Hearing, no ringing in the ears, no dizziness. No nasal drainage or congestion. No epistaxis. No sore throat. Lungs: No shortness of breath, cough, no sputum production. No wheezing. Cardiovascular: No chest pain, no lower extremity edema. No palpitations. No paroxysmal nocturnal dyspnea. No orthopnea. No lightheadedness or dizziness. No syncopal episodes. Abdominal: No abdominal pain. No nausea, reports one episode of vomiting. No diarrhea. No constipation. No bloody or tarry stools.. reports loss of appetite. Genitourinary: No dysuria, increased frequency, urgency. No urinary retention. Musculoskeletal: No myalgias. No muscle weakness, no gait dysfunction, no frequent falls. No back pain. No neck pain. Integumentary: No wounds, no lesions. No rash or pruritus. No unusual bruising. No change in hair or nails. Neurologic: No aphasia. No facial droop. No change in mentation. No head injury. No headache. No paralysis. No paresthesia. Psychiatric: No depression. No anxiety. No mood swings. Endocrine: No abnormal blood sugars. No weight change. No excessive sweating or thirst. No cold intolerance. Rest of the 14 point review of systems negative except for mentioned above. PHYSICAL EXAMINATION: GENERAL: The patient is alert and oriented x4, Well developed, well nourished. HEENT: Pupils are round and equally reacting to light. EOMI. no scleral icterus. No conjunctival pallor. Normocephalic, atraumatic. No pharyngeal erythema. No thyromegaly. CARDIOVASCULAR: S1 and S2 muffled PULMONARY: diminished breath sounds bilaterally with no wheezing or rhonchi noted. ABDOMEN: soft. Nontender on exam. obese. non-distended, normoactive bowel sounds. No palpable organomegaly. MUSCULOSKELETAL: No joint swelling or deformity. EXTREMITIES: No cyanosis, clubbing, or pedal edema. Right hip surgical dressing is intact NEUROLOGICAL: Gross neurological examination did not reveal any focal deficits. Diffuse weakness SKIN: No rashes. Assessment: Acute urinary tract infection, present on admission Sepsis, present on admission secondary to above Leukocytosis secondary to above Acute kidney injury, possibly secondary to dehydration from episodes of vomiting Generalized weakness History of atrial fibrillation, chronic Asthma, not in acute exacerbation Hyperlipidemia History of kidney stone with hydronephrosis and ESBL with E. coli in the urine GI prophylaxis DVT prophylaxis Full code Plan: Recommend to continue with current medications and to continue IV hydration and IV antibiotics in the form of ceftriaxone. Urine culture currently pending along with repeat blood cultures as initial blood cultures showing gram-negative rods and some gram-negative bacilli. Will repeat labs and continue to monitor c losely. Encouraged oral intake and close monitoring of labs. Given patient's history of kidney stones requiring intervention and hydronephrosis will order renal ultrasound and follow-up. Appropriate home medications have been resumed. The impression and plan of care has been dictated by Fouzia Bush, nurse practitioner as directed. MD Nate I have performed a history and physical examination and MDM of this patient, discussed the same with the dictator, and agree with the dictator's assessment and plan as written ,documented as a scribe. Based on total visit time, I have performed more than 50% of the visit. Review of Systems Constitutional: Reports chills, Reports fatigue, Reports fever Ears, nose, mouth and throat: Denies headache, Denies sore throat Cardiovascular: Denies chest pain, Denies shortness of breath Respiratory: Denies cough Gastrointestinal: Reports loss of appetite, Reports vomiting Genitourinary: Reports mixed incontinence Musculoskeletal: Denies myalgias Integumentary: Denies pruritus, Denies rash Neurological: Reports weakness Psychiatric: Denies anxiety, Denies depression Endocrine: Denies fatigue, Denies weight change Past Medical History Past Medical History: Atrial Fibrillation, Asthma, Hyperlipidemia, Myocardial Infarction (CT), Pneumonia Additional Past Medical History / Comment(s): kidney stone, uti's most recently tx 05-28-16 with macrobid that didn't work and then levaquin-completed the abx., falls Last Myocardial Infarction Date:: 2010 History of Any Multi-Drug Resistant Organisms: ESBL Date of last positivie culture/infection: 06/10/16 MDRO Source:: urine E.coli Past Surgical History: Heart Catheterization With Stent, Joint Replacement, Tonsillectomy Additional Past Surgical History / Comment(s): SOTO KNEE REPLACEMENT, KIDNEY STONE REMOVAL Past Anesthesia/Blood Transfusion Reactions: No Reported Reaction Date of Last Stent Placement:: 2010 Past Psychological History: No Psychological Hx Reported Smoking Status: Never smoker Past Alcohol Use History: Daily Past Drug Use History: None Reported - Past Family History Mother Family Medical History: Cancer Additional Family Medical History / Comment(s): breast cancer at age 75-lived to be 94 Father Family Medical History: Congestive Heart Failure (CHF) Additional Family Medical History / Comment(s): from CHF Medications and Allergies Home Medications Medication Instructions Recorded Confirmed Type Pravastatin Sodium [Pravachol] 40 mg PO HS 07/04/15 11/03/21 History Aspirin 81 mg PO DAILY 08/12/15 11/03/21 History Fluticasone Nasal [place] [Flonase 2 spray EA NOSTRIL DAILY 08/13/15 11/03/21 History Nasal [place]] Apixaban [Eliquis] 2.5 mg PO BID 02/23/18 11/03/21 History Acetaminophen [Tylenol Arthritis] 650 - 1,300 mg PO Q8H PRN 11/03/21 11/03/21 History Alendronate Sodium [Fosamax] 70 mg PO Q7D 11/03/21 11/03/21 History Ascorbic Acid [Vitamin C] 1,000 mg PO DAILY 11/03/21 11/03/21 History Cholecalciferol [Vitamin D3 (25 25 mcg PO DAILY 11/03/21 11/03/21 History Mcg = 1000 Iu)] Cyanocobalamin (Vitamin B-12) 1,000 mcg PO DAILY 11/03/21 11/03/21 History [Vitamin B-12] Diltiazem HCl [Diltiazem HCl 24Hr 180 mg PO DAILY 11/03/21 11/03/21 History ER (CD)] Melatonin 10 mg PO HS 11/03/21 11/03/21 History Allergies Allergy/AdvReac Type Severity Reaction Status Date / Time codeine Allergy Rash/Hives Verified 11/03/21 17:33 amoxicillin trihydrate AdvReac Nausea & Verified 11/03/21 17:33 [From Augmentin] Vomiting & Diarrhea potassium clavulanate AdvReac Nausea & Verified 11/03/21 17:33 [From Augmentin] Vomiting & Diarrhea Physical Exam Vitals: Vital Signs Temp Pulse Resp BP Pulse Ox 11/03/21 22:20 88 22 120/73 96 11/03/21 17:34 98.0 F 93 20 112/58 94 L Intake and Output 11/03/21 11/04/21 11/04/21 22:59 06:59 14:59 Other: Voiding Method Toilet Weight 66.678 kg Results CBC & Chem 7: 11/04/21 07:32 11/03/21 21:24 Labs: Abnormal Lab Results - Last 24 Hours (Table) 11/03/21 11/03/21 11/03/21 Range/Units 21:24 21:24 21:24 WBC 15.1 H (3.8-10.6) k/uL MCV 100.2 H (80.0-100.0) fL Neutrophils # 13.1 H (1.3-7.7) k/uL Lymphocytes # 0.9 L (1.0-4.8) k/uL APTT 31.1 H (22.0-30.0) sec Sodium (137-145) mmol/L BUN (7-17) mg/dL Creatinine (0.52-1.04) mg/dL Glucose (74-99) mg/dL Calcium (8.4-10.2) mg/dL Total Protein (6.3-8.2) g/dL Albumin (3.5-5.0) g/dL Urine Appearance Turbid H (Clear) Urine Protein 1+ H (Negative) Urine Blood Moderate H (Negative) Ur Leukocyte Esterase Large H (Negative) Urine RBC 22 H (0-5) /hpf Urine WBC >182 H (0-5) /hpf Urine WBC Clumps Many H (None) /hpf Urine Bacteria Occasional H (None) /hpf Urine Mucus Rare H (None) /hpf 11/03/21 11/04/21 Range/Units 21:24 07:32 WBC 16.0 H (3.8-10.6) k/uL MCV 103.0 H (80.0-100.0) fL Neutrophils # 14.4 H (1.3-7.7) k/uL Lymphocytes # 0.5 L (1.0-4.8) k/uL APTT (22.0-30.0) sec Sodium 133 L (137-145) mmol/L BUN 33 H (7-17) mg/dL Creatinine 1.41 H (0.52-1.04) mg/dL Glucose 100 H (74-99) mg/dL Calcium 8.3 L (8.4-10.2) mg/dL Total Protein 6.1 L (6.3-8.2) g/dL Albumin 3.2 L (3.5-5.0) g/dL Urine Appearance (Clear) Urine Protein (Negative) Urine Blood (Negative) Ur Leukocyte Esterase (Negative) Urine RBC (0-5) /hpf Urine WBC (0-5) /hpf Urine WBC Clumps (None) /hpf Urine Bacteria (None) /hpf Urine Mucus (None) /hpf Microbiology - Last 24 Hours (Table) 11/03/21 21:24 Urine Culture - Preliminary Urine,Voided Thrombosis Risk Factor Assmnt - DVT/VTE Prophylaxis DVT/VTE Prophylaxis: Pharmacologic Prophylaxis ordered Assessment and Plan Time with Patient: Greater than 30
[2021-11-04] MEDS: APIXABAN 2.5 MG TABLET PO SCH ×2 (15:48→21:57)
[2021-11-04] MEDS: ASCORBIC ACID 500 MG TAB PO SCH (15:50)
[2021-11-04] MEDS: CHOLECALCIFEROL 25 MCG (1000 IU) TABLET PO SCH (15:50)
[2021-11-04] MEDS: ASPIRIN 81 MG PO SCH (15:50)
[2021-11-04] MEDS: FLUTICASONE 50MCG/SPRAY NASAL 16GM EA NOSTRIL SCH (15:51)
[2021-11-04] MEDS: CYANOCOBALAMIN 500 MCG TAB PO SCH (15:51)
[2021-11-04] MEDS: DILTIAZEM CD 180 MG CAP.ER.24H PO SCH (15:51)
--- NOTE | 2021-11-04 16:32 | US ---
EXAMINATION TYPE: US kidneys/renal and bladder DATE OF EXAM: 11/04/2021 COMPARISON: CT dated 02/23/2018 CLINICAL HISTORY: UTI, history of hydronephrosis and kidney stones. UTI, hx of hydronephrosis and kid carlito stones. EXAM MEASUREMENTS: Right Kidney: 10.4 x 4.5 x 4.7 cm Left Kidney: 10.8 x 5.9 x 5.1 cm Exam is limited due to overlying bowel gas. Right Kidney: Hypoechoic-anechoic area seen medially at inferior pole: 1.6 x 1.9 x 1.9 cm. Anechoic area seen lower, possible dilated collecting system: 1.4 x 1.2 x 0.6 cm., Similar to prior CT Hypoech oic area seen laterally: 1.5 x 1.1 x 1.1 cm. Left Kidney: Anechoic area seen inferior pole, possible caliectasis: 1.1 x 1.3 x 0.9 cm., Parapelvic cyst Bladder: Appears anechoic. Bilateral Jets seen: Left jet seen at this time. Cortical medullary differentiation is maintained within the kidneys. IMPRESSION: Cystic focus lower pole right kidney with some probable caliectasis and extrarenal pelvis. Was seen o n prior CT.
[2021-11-04] MEDS: MELATONIN 5 MG TABLET PO SCH (21:56)
[2021-11-04] MEDS: PRAVASTATIN SODIUM 40 MG TAB PO SCH (21:57)
[2021-11-05] MEDS: ACETAMINOPHEN TAB 325 MG TAB PO PRN (03:39)
[2021-11-05 06:51] LABS: Basophils # (A) 0.1 k/uL (0-0.2); Basophils % (A) 0 %; Eosinophils # (A) 0.1 k/uL (0-0.7); Eosinophils % (A) 1 %; HCT 39.8 % (34.0-46.0); Lymphocytes % (A) 7 %; MCHC 32.7 g/dL (31.0-37.0); MCV 100.9 fL (80.0-100.0); Monocytes # (A) 0.8 k/uL (0-1.0); Monocytes % (A) 5 %; Neutrophils # (A) 11.9 k/uL (1.3-7.7); Neutrophils % (A) 84 %; Platelet Count 218 k/uL (150-450); RBC 3.94 m/uL (3.80-5.40); RDW 12.9 % (11.5-15.5); WBC 14.2 k/uL (3.8-10.6)
[2021-11-05 07:26] LABS: African American GFR (CKD) 39 (>60 ml/min/1.73 sqM); Anion Gap 4 mmol/L; Blood Urea Nitrogen 29 mg/dL (7-17); Calcium 7.3 mg/dL (8.4-10.2); Carbon Dioxide 20 mmol/L (22-30); Chloride 109 mmol/L (98-107); Glucose 109 mg/dL (74-99); Magnesium 2.2 mg/dL (1.6-2.3); Non-African American GFR(CKD) 34 (>60 ml/min/1.73 sqM); Potassium 3.8 mmol/L (3.5-5.1); Sodium 133 mmol/L (137-145)
[2021-11-05] MEDS: ASCORBIC ACID 500 MG TAB PO SCH (07:52)
[2021-11-05] MEDS: CHOLECALCIFEROL 25 MCG (1000 IU) TABLET PO SCH (07:52)
[2021-11-05] MEDS: PANTOPRAZOLE 40 MG/10 ML VIAL IV SCH (07:53)
[2021-11-05] MEDS: ASPIRIN 81 MG PO SCH (07:53)
[2021-11-05] MEDS: DILTIAZEM CD 180 MG CAP.ER.24H PO SCH (07:53)
[2021-11-05] MEDS: CYANOCOBALAMIN 500 MCG TAB PO SCH (07:53)
[2021-11-05] MEDS: APIXABAN 2.5 MG TABLET PO SCH ×2 (07:53→20:26)
[2021-11-05] MEDS: FLUTICASONE 50MCG/SPRAY NASAL 16GM EA NOSTRIL SCH (07:58)
[2021-11-05] MEDS: SODIUM CHLORIDE 0.9% 1,000 ML IV SCH ×2 (11:10→21:00)
--- NOTE | 2021-11-05 11:49 | XR ---
EXAMINATION TYPE: XR chest 1V portable DATE OF EXAM: 11/05/2021 COMPARISON: Chest x-ray 11/03/2021 HISTORY: Cough and shortness of breath TECHNIQUE: Single frontal view of the chest is obtained. FINDINGS: There is no focal air space opacity, pleural effusion, or pneumothorax seen. The cardiac silhouette size is within normal limits. Aorta is dense. mitral annular calcification is present. The osseous structures are intact, patient is rotated. IMPRESSION: No acute process.
--- NOTE | 2021-11-05 14:34 | P.PN ---
Subjective Progress Note Date: 11/05/21 This is a pleasant 86-year-old female who presented to the emergency department with reports of increasing weakness, a few episodes of vomiting, decreased oral intake and possible urinary tract infection. Patient did follow with her primary care provider at [facility] although unable to provide a sample at that time and was instructed if having any worsening symptoms to go to the nearest emergency room. Patient reports to being incontinent and has been for years. Patient does have a past medical history of atrial fibrillation, asthma, hyperlipidemia, myocardial infarction, kidney stones and frequent urinary tract infections in the past. Patient does follow with Dr. 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 Patient's oral intake has been decreased with not much of an appetite and patient feels overall generalized weakness. Patient was admitted with sepsis criteria and UTI workup. Patient was initiated on IV antibiotics in the form of ceftriaxone and will continue. Urine cultures are pending. Blood cultures showing gram-negative rods and Gram stain is showing gram-negative bacilli which is currently pending. Repeat blood cultures ordered and will continue to monitor closely. Chest x-ray on admission shows no active cardiopulmonary disease and there is some clearing of the minimal pleural reaction lateral left lung base compared to old exam. Labs on hospital presentation showed a white blood count of 15.1, hemoglobin 14.6, sodium 133, potassium 4.6, BUN 33, creatinine 1.41, calcium 8.3. 11/05/2021 Patient is seen and evaluated in follow-up this morning with no acute overnight issues noted. Patient denies any abdominal discomfort and reports to being able to tolerate some of her diet. Patient denies any nausea or vomiting. Patient denies burning or pain with urination and currently awaiting for urine cultures to finalized. Patient did have a low-grade temp T-max 100.6 early this morning. WBC mildly trending down at 14.2, sodium 133, BUN 29, creatinine slightly elevated at 1.43, magnesium is 2.2. Preliminary urine culture showing gram- negative bacilli an initial blood culture showing E. coli with repeat cultures currently pending. Will await finalization to determine clearance of bacteremia and discharge antibiotics. Encouraged increase activity as tolerated and will continue to monitor. Patient with a dry cough and chest x-ray was ordered. Patient continues on gentle IV normal saline and will continue. Review of systems: Constitutional: No reports of fatigue, fever, or chills Cardiovascular: No reports of chest pain or palpitations Respiratory: No reports of shortness of breath, reports to a dry cough GI: No reports of nausea, vomiting, or diarrhea : No reports of dysuria or retention Neurovascular: No reports of weakness or numbness All medications have been reviewed Active Medications Acetaminophen (Acetaminophen Tab 325 Mg Tab) 650 mg PO Q6HR PRN PRN Reason: Mild Pain or Fever > 100.5 Last Admin: 11/05/21 03:39 Dose: 650 mg Documented by: Acetaminophen (Acetaminophen Tab 500 Mg Tab) 1,000 mg PO Q8H PRN PRN Reason: Fever and/ or Pain Last Admin: 11/04/21 16:02 Dose: 1,000 mg Documented by: Apixaban (Apixaban 2.5 Mg Tablet) 2.5 mg PO BID [facility]; Protocol Last Admin: 11/05/21 07:53 Dose: 2.5 mg Documented by: Ascorbic Acid (Ascorbic Acid 500 Mg Tab) 1,000 mg PO DAILY [facility] Last Admin: 11/05/21 07:52 Dose: 1,000 mg Documented by: Aspirin (Aspirin 81 Mg) 81 mg PO DAILY [facility] Last Admin: 11/05/21 07:53 Dose: 81 mg Documented by: Cholecalciferol (Cholecalciferol 25 Mcg (1000 Iu) Tablet) 25 mcg PO DAILY [facility] Last Admin: 11/05/21 07:52 Dose: 25 mcg Documented by: Cyanocobalamin (Cyanocobalamin 500 Mcg Tab) 1,000 mcg PO DAILY [facility] Last Admin: 11/05/21 07:53 Dose: 1,000 mcg Documented by: Diltiazem HCl (Diltiazem Cd 180 Mg Cap.Er.24h) 180 mg PO DAILY [facility] Last Admin: 11/05/21 07:53 Dose: 180 mg Documented by: Fluticasone Propionate (Fluticasone 50mcg/Re[place] Nasal 16gm) 2 spray EA NOSTRIL DAILY [facility] Last Admin: 11/05/21 07:58 Dose: 2 spray Documented by: Sodium Chloride (Saline 0.9%) 1,000 mls @ 75 mls/hr IV .[id number] [facility] Last Admin: 11/05/21 11:10 Dose: 75 mls/hr Documented by: Ceftriaxone Sodium 2 gm/ (Sodium Chloride) 50 mls @ 100 mls/hr IVPB Q24HR [facility] Last Admin: 11/05/21 07:52 Dose: 100 mls/hr Documented by: Melatonin (Melatonin 5 Mg Tablet) 10 mg PO HS [facility] Last Admin: 11/04/21 21:56 Dose: 10 mg Documented by: Naloxone HCl (Naloxone 0.4 Mg/Ml 1 Ml Vial) 0.2 mg IV Q2M PRN PRN Reason: Opioid Reversal Non-Formulary Medication (Alendronate Sodium [Fosamax]) 70 mg PO Q7D [facility] Last Admin: 11/04/21 15:48 Dose: Not Given Documented by: Ondansetron HCl (Ondansetron 4 Mg/2 Ml Vial) 4 mg IVP Q8HR PRN PRN Reason: Nausea And Vomiting Pantoprazole Sodium (Pantoprazole 40 Mg/10 Ml Vial) 40 mg IV DAILY [facility] Last Admin: 11/05/21 07:53 Dose: 40 mg Documented by: Pravastatin Sodium (Pravastatin Sodium 40 Mg Tab) 40 mg PO HS [facility] Last Admin: 11/04/21 21:57 Dose: 40 mg Documented by: PHYSICAL EXAMINATION: GENERAL: The patient is alert and oriented x4, Well developed, well nourished. HEENT: Pupils are round and equally reacting to light. EOMI. no scleral icterus. No conjunctival pallor. Normocephalic, atraumatic. No pharyngeal erythema. No thyromegaly. CARDIOVASCULAR: S1 and S2 muffled PULMONARY: diminished breath sounds bilaterally with no wheezing or rhonchi noted. ABDOMEN: soft. Nontender on exam. obese. non-distended, normoactive bowel sounds. No palpable organomegaly. MUSCULOSKELETAL: No joint swelling or deformity. EXTREMITIES: No cyanosis, clubbing, or pedal edema. NEUROLOGICAL: Gross neurological examination did not reveal any focal deficits. SKIN: No rashes. Assessment: Acute urinary tract infection, present on admission Bacteremia of E. coli most likely secondary to above, repeat blood cultures pending Sepsis, present on admission secondary to above Leukocytosis secondary to above Acute kidney injury, possibly secondary to dehydration from episodes of vomiting Generalized weakness History of atrial fibrillation, chronic Asthma, not in acute exacerbation Hyperlipidemia History of kidney stone with hydronephrosis and ESBL with E. coli in the urine GI prophylaxis DVT prophylaxis Full code Plan: Recommend to continue with current medications and to continue IV hydration and IV antibiotics in the form of ceftriaxone. Urine culture preliminary showing gram-negative bacilli an initial blood culture shows E. coli and repeat blood cultures are pending. Patient with a dry cough that she states developed last night with possible concerns from overload from IV fluid and ordered chest x-ray which shows no acute process noted with no focal airspace opacification pleural effusion or pneumothorax noted. Will continue gentle IV hydration and repeat labs and continue to monitor closely. Encouraged oral intake and increased activity as tolerated. She also underwent abdominal ultrasound which shows cys tic focus of the lower pole right kidney with some probable caliectasis an extrarenal pelvis that was also seen on prior CT and exam is limited due to overlying bowel gas. Awaiting finalized urine cultures and clearance of bacteremia The impression and plan of care has been dictated by Fouzia Bush, nurse practitioner as directed. MD Nate I have performed a history and physical examination and MDM of this patient, discussed the same with the dictator, and agree with the dictator's assessment and plan as written ,documented as a scribe. Based on total visit time, I have performed more than 50% of the visit. Objective - Vital Signs Vital signs: Vital Signs Temp 97.9 F 11/05/21 08:00 Pulse 90 11/05/21 08:00 Resp 16 11/05/21 08:00 BP 102/57 11/05/21 08:00 Pulse Ox 96 11/05/21 08:00 Intake & Output 11/04/21 11/05/21 11/05/21 18:59 06:59 18:59 Intake Total 118 Balance 118 Intake: Oral 118 Other: Voiding Method Toilet # Voids 2 - Labs CBC & Chem 7: 11/05/21 06:40 11/05/21 06:40 Labs: Abnormal Lab Results - Last 24 Hours (Table) 11/05/21 11/05/21 Range/Units 06:40 06:40 WBC 14.2 H (3.8-10.6) k/uL MCV 100.9 H (80.0-100.0) fL Neutrophils # 11.9 H (1.3-7.7) k/uL Sodium 133 L (137-145) mmol/L Chloride 109 H (98-107) mmol/L Carbon Dioxide 20 L (22-30) mmol/L BUN 29 H (7-17) mg/dL Creatinine 1.43 H (0.52-1.04) mg/dL Glucose 109 H (74-99) mg/dL Calcium 7.3 L (8.4-10.2) mg/dL Microbiology - Last 24 Hours (Table) 11/03/21 21:24 Blood Culture Gram Stain - Preliminary Blood 11/03/21 21:05 Blood Culture Gram Stain - Preliminary Blood Blood Culture - Preliminary Escherichia coli 11/03/21 21:24 Blood Culture - Final Blood 11/03/21 21:24 Blood Culture - Final Blood
[2021-11-05] MEDS: MELATONIN 5 MG TABLET PO SCH (20:26)
[2021-11-05] MEDS: PRAVASTATIN SODIUM 40 MG TAB PO SCH (20:27)
[2021-11-06 07:45] VITALS: BP 106/59; PULSE 86; RESP 16; TEMP 98
[2021-11-06] MEDS: APIXABAN 2.5 MG TABLET PO SCH (08:39)
[2021-11-06] MEDS: ASCORBIC ACID 500 MG TAB PO SCH (08:39)
[2021-11-06] MEDS: DILTIAZEM CD 180 MG CAP.ER.24H PO SCH (08:40)
[2021-11-06] MEDS: ASPIRIN 81 MG PO SCH (08:40)
[2021-11-06] MEDS: CYANOCOBALAMIN 500 MCG TAB PO SCH (08:40)
[2021-11-06] MEDS: CHOLECALCIFEROL 25 MCG (1000 IU) TABLET PO SCH (08:40)
[2021-11-06] MEDS: PANTOPRAZOLE 40 MG/10 ML VIAL IV SCH (08:47)
[2021-11-06] MEDS: FLUTICASONE 50MCG/SPRAY NASAL 16GM EA NOSTRIL SCH (08:47)
[2021-11-06 10:55] LABS: Basophils % (A) 0 %; Eosinophils # (A) 0.1 k/uL (0-0.7); Eosinophils % (A) 1 %; HCT 42.7 % (34.0-46.0); HGB 13.2 gm/dL (11.4-16.0); Lymphocytes # (A) 0.7 k/uL (1.0-4.8); Lymphocytes % (A) 7 %; MCH 31.7 pg (25.0-35.0); MCHC 30.8 g/dL (31.0-37.0); Macrocytosis Slight; Monocytes # (A) 0.5 k/uL (0-1.0); Monocytes % (A) 5 %; Neutrophils # (A) 8.6 k/uL (1.3-7.7); Neutrophils % (A) 84 %; Platelet Count 302 k/uL (150-450); RBC 4.15 m/uL (3.80-5.40); RDW 14.8 % (11.5-15.5); WBC 10.2 k/uL (3.8-10.6)
[2021-11-06 11:22] LABS: African American GFR (CKD) 51 (>60 ml/min/1.73 sqM); Anion Gap 7 mmol/L; Blood Urea Nitrogen 22 mg/dL (7-17); Calcium 7.6 mg/dL (8.4-10.2); Carbon Dioxide 20 mmol/L (22-30); Chloride 110 mmol/L (98-107); Glucose 116 mg/dL (74-99); Non-African American GFR(CKD) 44 (>60 ml/min/1.73 sqM); Potassium 4.1 mmol/L (3.5-5.1); Sodium 137 mmol/L (137-145)
[2021-11-06] MEDS ORDERED: SENNOSIDES 8.6 MG TAB PO SCH (11:30)
[2021-11-06] MEDS: SODIUM CHLORIDE 0.9% 1,000 ML IV SCH (11:37)
--- NOTE | 2021-11-06 15:01 | P.DS ---
Providers Date of admission: 11/04/21 10:41 Expected date of discharge: 11/06/21 Attending physician: Grecia Allan Primary care physician: Noelle Marquez MD Hospital Course: Final diagnosis Acute urinary tract infection, present on admission Bacteremia of E. coli most likely secondary to above, repeat blood cultures have been negative Sepsis, present on admission secondary to above Leukocytosis secondary to above, improved Acute kidney injury, possibly secondary to dehydration from episodes of vomiting, improving Generalized weakness History of atrial fibrillation, chronic Asthma, not in acute exacerbation Hyperlipidemia History of kidney stone with hydronephrosis and ESBL with E. coli in the urine GI prophylaxis DVT prophylaxis Full code Discharge disposition Patient is being discharged in a stable condition with guarded prognosis to home. Patient will follow-up with Dr. Tong out of [facility] primary care provider in the outpatient setting upon discharge. Patient will continue on oral Ceftin twice daily for the next 1 week. Recommend repeat labs in the outpatient setting to monitor kidney functions closely. Prescriptions provided. Total time taken is greater than 35 minutes. Hospital course This is a 86-year-old male who was recently admitted with acute urinary tract infection and sepsis, present on admission and was being closely monitored. Patient was started on IV ceftriaxone and culture sensitivity showing E. coli that also presented in the blood as E. coli. 2 subsequent blood cultures have remained negative and urine culture sensitivity finalized as E. coli and will c ontinue on Ceftin 500 mg twice daily for the next 1 week and recommend outpatient follow-up with primary care provider. On admission patient had some elevated creatinine possibly secondary to poor oral intake and vomiting and was hydrated and is improving and recommend outpatient follow-up with primary care provider and repeat labs to monitor closely. Patient is asking if she will be discharged today. Currently no reports of chest pain, shortness of breath, or palpitations. Patient is afebrile. No reports of nausea or vomiting and patient is tolerating diet. Patient will be discharged home today. PHYSICAL EXAMINATION: GENERAL: Patient is awake, alert and oriented 3, well-developed, well- nourished. Room air HEENT: Pupils are round and equally reacting to light. EOMI. No scleral icterus. No conjunctival pallor. Normocephalic, atraumatic. No pharyngeal erythema. No thyromegaly. CARDIOVASCULAR: S1 and S2 present. No murmurs, rubs, or gallops. PULMONARY: Chest is clear to auscultation, no wheezing or crackles noted ABDOMEN: Soft, nontender, nondistended, normoactive bowel sounds. No palpable organomegaly. MUSCULOSKELETAL: No joint swelling or deformity. EXTREMITIES: No cyanosis, clubbing, or pedal edema. NEUROLOGICAL: Moving 4 limbs, no focal deficits noted. Cooperative, non- suicidal SKIN: No rashes. Please refer to medication reconciliation sheet for a list of medications. The impression and plan of care has been dictated by Fouzia Bush, Nurse Practitioner as directed. Dr. Sanjana MD I have performed a history and physical examination and MDM of this patient, discussed the same with the dictator, and agree with the dictator's assessment and plan as written ,documented as a scribe. Based on total visit time, I have performed more than 50% of the visit. Patient Condition at Discharge: Stable Plan - Discharge Summary Discharge Rx Participant: Yes New Discharge Prescriptions: New Cefuroxime Axetil [Ceftin] 500 mg PO BID 7 Days #14 tab Continue Pravastatin Sodium [Pravachol] 40 mg PO HS Aspirin 81 mg PO DAILY Fluticasone Nasal [place] [Flonase Nasal [place]] 2 spray EA NOSTRIL DAILY Apixaban [Eliquis] 2.5 mg PO BID Cyanocobalamin (Vitamin B-12) [Vitamin B-12] 1,000 mcg PO DAILY Ascorbic Acid [Vitamin C] 1,000 mg PO DAILY Melatonin 10 mg PO HS Alendronate Sodium [Fosamax] 70 mg PO Q7D Acetaminophen [Tylenol Arthritis] 650 - 1,300 mg PO Q8H PRN PRN Reason: Fever And/ Or Pain Cholecalciferol [Vitamin D3 (25 Mcg = 1000 Iu)] 25 mcg PO DAILY Diltiazem HCl [Diltiazem HCl 24Hr ER (CD)] 180 mg PO DAILY Discharge Medication List Pravastatin Sodium [Pravachol] 40 mg PO HS 07/04/15 [History] Aspirin 81 mg PO DAILY 08/12/15 [History] Fluticasone Nasal [place] [Flonase Nasal [place]] 2 spray EA NOSTRIL DAILY 08/13/15 [History] Apixaban [Eliquis] 2.5 mg PO BID 02/23/18 [History] Acetaminophen [Tylenol Arthritis] 650 - 1,300 mg PO Q8H PRN 11/03/21 [History] Alendronate Sodium [Fosamax] 70 mg PO Q7D 11/03/21 [History] Ascorbic Acid [Vitamin C] 1,000 mg PO DAILY 11/03/21 [History] Cholecalciferol [Vitamin D3 (25 Mcg = 1000 Iu)] 25 mcg PO DAILY 11/03/21 [History] Cyanocobalamin (Vitamin B-12) [Vitamin B-12] 1,000 mcg PO DAILY 11/03/21 [History] Diltiazem HCl [Diltiazem HCl 24Hr ER (CD)] 180 mg PO DAILY 11/03/21 [History] Melatonin 10 mg PO HS 11/03/21 [History] Cefuroxime Axetil [Ceftin] 500 mg PO BID 7 Days #14 tab 11/06/21 [Rx] Follow up Appointment(s)/Referral(s): Noelle Marquez MD [Primary Care Provider] - 1-2 days (Office will call pt with appointment ) Ambulatory/Diagnostic Orders: Basic Metabolic Panel [LAB.AMB] Time Frame: 3 Days, Location: None Selected Patient Instructions/Handouts: Urinary Tract Infection in Women (DC), Sepsis (DC) Activity/Diet/Wound Care/Special Instructions: Activity Limited until follow-up Follow-up with primary care provider on discharge Continue taking medications as prescribed Slowly increase oral intake as tolerated recommend repeat labs in 2-3 days Continue taking antibiotics until finished Discharge Disposition: HOME SELF-CARE
== END 2021-11-06 14:08 | disposition home or self-care (01) | DRG 872 ==
LOC: EC 15:58 → 6NMEDSUR 21:59 → OBSVTOIN 11-04 10:41
PROVIDERS: ADMIT Internal Medicine; ATTEND Internal Medicine
DX: A41.51 Sepsis due to Escherichia coli [E. coli] (principal); I48.20 Chronic atrial fibrillation, unspecified; N17.9 Acute kidney failure, unspecified; R65.20 Severe sepsis without septic shock; E78.5 Hyperlipidemia, unspecified; R32 Unspecified urinary incontinence; I25.2 Old myocardial infarction; J45.909 Unspecified asthma, uncomplicated; Z79.01 Long term (current) use of anticoagulants; Z79.82 Long term (current) use of aspirin; Z79.83 Long term (current) use of bisphosphonates; Z79.899 Other long term (current) drug therapy; Z80.3 Family history of malignant neoplasm of breast; Z82.49 Family history of ischemic heart disease and other diseases of the circulatory system; Z87.440 Personal history of urinary (tract) infections; Z87.442 Personal history of urinary calculi; Z96.653 Presence of artificial knee joint, bilateral; Z90.89 Acquired absence of other organs; Z88.5 Allergy status to narcotic agent; Z88.0 Allergy status to penicillin; Z95.5 Presence of coronary angioplasty implant and graft
CPT/HCPCS: 36415; 71045; 71046; 76770; 80048; 80053; 81001; 82607; 82746; 82747; 83605; 83735; 85025; 85610; 85730; 87040; 87077; 87086; 87186; 93005; 96361; 96374; 96375; 99291

== ENCOUNTER → 2021-11-10 | Outpatient (CLI) | payer MEDICARE ==
[2021-11-10 20:18] LABS: African American GFR (CKD) 68.1 (60.0-200.0); Anion Gap 12.4 mmol/L (10.00-18.00); BUN/Creat Ratio 14.89 Ratio (12.00-20.00); Blood Urea Nitrogen 13.4 mg/dL (9.0-27.0); Calcium 9.1 mg/dL (8.7-10.3); Carbon Dioxide 23.6 mmol/L (20.0-27.5); Non-African American GFR(CKD) 58.7 (60.0-200.0); Potassium 4.8 mmol/L (3.5-5.5)
== END | disposition home or self-care (01) ==
LOC: LABWHC1 12:07
PROVIDERS: ATTEND Registered Nurse
DX: R79.82 Elevated C-reactive protein (CRP) (principal)
CPT/HCPCS: 36415; 80048

== ENCOUNTER 2023-07-21 09:45 | Inpatient (IN) | payer MEDICARE ==
[2023-07-21] MEDS ORDERED: KETOROLAC 15 MG/ML 1 ML VIAL IVP STA (10:41)
[2023-07-21] MEDS ORDERED: SODIUM CHLORIDE 0.9% 1,000 ML IV STA ×2 (10:41→12:55)
--- NOTE | 2023-07-21 10:50 | ED ---
Abdominal Pain HPI - General Chief Complaint: Abdominal Pain Stated Complaint: Abd Pain Time Seen by Provider: 07/21/23 10:17 Source: patient Mode of arrival: ambulatory Limitations: no limitations - History of Present Illness Initial Comments: 88-year-old female presenting to the ED with a chief complaint of abdominal pain. Patient states approximately 3 days ago started to feel pain in her left lower abdomen. Patient states pain is constant nature. Patient states it is a dull ache. States is 6 out of 10 in severity. It is not radiate. Patient notes associated generalized fatigue with this. Denies changes in bowel habits. Does note she is incontinent of urine at baseline and is unsure if she is had any urinary symptoms however notes she did have one day where she had an episode of hematuria. Associated decreased appetite. No chest pain or shortness of breath. No other complaints. - Related Data Home Medications Medication Instructions Recorded Confirmed Pravastatin Sodium [Pravachol] 40 mg PO HS 07/04/15 05/14/23 Aspirin 81 mg PO DAILY 08/12/15 05/14/23 Acetaminophen [Tylenol Arthritis] 650 - 1,300 mg PO Q8H PRN 11/03/21 05/14/23 Alendronate Sodium [Fosamax] 70 mg PO SA 11/03/21 05/14/23 Ascorbic Acid [Vitamin C] 1,000 mg PO DAILY 11/03/21 05/14/23 Cholecalciferol [Vitamin D3 (25 25 mcg PO DAILY 11/03/21 05/14/23 Mcg = 1000 Iu)] Cyanocobalamin (Vitamin B-12) 1,000 mcg PO DAILY 11/03/21 05/14/23 [Vitamin B-12] dilTIAZem HCL [dilTIAZem HCL 24Hr 180 mg PO DAILY 11/03/21 05/14/23 ER (CD)] Apixaban [Eliquis] 5 mg PO BID 05/14/23 05/14/23 Allergies Allergy/AdvReac Type Severity Reaction Status Date / Time codeine Allergy Rash/Hives Verified 07/21/23 14:38 amoxicillin trihydrate AdvReac Nausea & Verified 07/21/23 14:38 [From Augmentin] Vomiting & Diarrhea potassium clavulanate AdvReac Nausea & Verified 07/21/23 14:38 [From Augmentin] Vomiting & Diarrhea Review of Systems ROS Statement: Those systems with pertinent positive or pertinent negative responses have been documented in the HPI. ROS Other: All systems not noted in ROS Statement are negative. Past Medical History Past Medical History: Atrial Fibrillation, Asthma, Hyperlipidemia, Myocardial Infarction (CA), Pneumonia Additional Past Medical History / Comment(s): kidney stone, uti's most recently tx 05-28-16 with macrobid that didn't work and then levaquin-completed the abx., falls Last Myocardial Infarction Date:: 2010 History of Any Multi-Drug Resistant Organisms: ESBL Date of last positivie culture/infection: 06/10/16 MDRO Source:: urine E.coli Past Surgical History: Heart Catheterization With Stent, Joint Replacement, Tonsillectomy Additional Past Surgical History / Comment(s): SOTO KNEE REPLACEMENT, KIDNEY STONE REMOVAL Past Anesthesia/Blood Transfusion Reactions: No Reported Reaction Date of Last Stent Placement:: 2010 Past Psychological History: No Psychological Hx Reported Smoking Status: Never smoker Past Alcohol Use History: Daily Past Drug Use History: None Reported - Past Family History Mother Family Medical History: Cancer Additional Family Medical History / Comment(s): breast cancer at age 75-lived to be 94 Father Family Medical History: Congestive Heart Failure (CHF) Additional Family Medical History / Comment(s): from CHF General Exam Limitations: no limitations General appearance: alert, in no apparent distress Neck exam: Present: normal inspection Respiratory exam: Present: normal lung sounds bilaterally Cardiovascular Exam: Present: regular rate, normal rhythm GI/Abdominal exam: Present: tenderness (Left lower quadrant tenderness to palpation with rigidity.), other (No CVA tenderness to percussion bilaterally.) Neurological exam: Present: alert, oriented X3 Skin exam: Present: warm, dry Course Vital Signs 07/21/23 07/21/23 09:47 13:54 Temperature 97.7 F Pulse Rate 64 82 Respiratory 16 18 Rate Blood Pressure 115/73 111/64 O2 Sat by Pulse 96 96 Oximetry Medical Decision Making - Medical Decision Making Was pt. sent in by a medical professional or institution (, PA, YARDAGE TUFTING MACHINE OPERATOR, urgent care, hospital, or intermediate...) When possible be specific @ -No Did you speak to anyone other than the patient for history (EMS, parent, family, police, friend...)? What history was obtained from this source @ -No Did you review nursing and triage notes (agree or disagree)? Why? @ -I reviewed and agree with nursing and triage notes Were old charts reviewed (outside hosp., previous admission, EMS record, old EKG, old radiological studies, urgent care reports/EKG's, intermediate records)? Report findings @ -No old charts were reviewed Differential Diagnosis (chest pain, altered mental status, abdominal pain women, abdominal pain men, vaginal bleeding, weakness, fever, dyspnea, syncope, headache, dizziness, GI bleed, back pain, seizure, CVA, palpatations, mental health, musculoskeletal)? @ -Differential Abdominal Pain Women: Appendicitis, Cholecystitis, diverticulosis, ischemic bowel, pancreatitis, hepatitis, UTI, gastroenteritis, AAA, incarcerated hernia, bowel obstruction, constipation, inflammatory bowel, hepatitis, peptic ulcer disease, splenic infarction, perforated viscus, vulvitis, ovarian torsion, PID, kidney stone, placenta abruption, this is not meant to be an all-inclusive list EKG interpreted by me (3pts min.). @ -As above X-rays interpreted by me (1pt min.). @ -None done CT interpreted by me (1pt min.). @ -CT abdomen and pelvis showed left-sided hydronephrosis with perinephric stranding as well as small amount of fluid. There is some mucosal enhancement soft tissue enhancement in the proximal left ureter with malignancy has consideration. Questionable perforated collecting system. Component of hemorrhage may also be present to the higher density than the surrounding region. No findings of small sliding hiatal hernia and diverticulosis without evidence of diverticulitis. U/S interpreted by me (1pt. min.). @ -None done What testing was considered but not performed or refused? (CT, X-rays, U/S, labs)? Why? @ -None What meds were considered but not given or refused? Why? @ -None Did you discuss the management of the patient with other professionals (professionals i.e. DrRamy, PA, YARDAGE TUFTING MACHINE OPERATOR, lab, RT, psych nurse, social sciences department chair, application security architect, teacher, workers' compensation hearings officer, case worker)? Give summary @ -Case discussed with Dr. Burroughs, who accepts admission. Was smoking cessation discussed for >3mins.? @ -No Was critical care preformed (if so, how long)? @ -No Were there social determinants of health that impacted care today? How? (Homelessness, low income, unemployed, alcoholism, drug addiction, transportati on, low edu. Level, literacy, decrease access to med. care, penitentiary, rehab)? @ -No Was there de-escalation of care discussed even if they declined (Discuss DNR or withdrawal of care, Hospice)? DNR status @ -No What co-morbidities impacted this encounter? (DM, HTN, Smoking, COPD, CAD, Cancer, CVA, ARF, Chemo, Hep., AIDS, mental health diagnosis, sleep apnea, morbid obesity)? @ -A-fib Was patient admitted / discharged? Hospital course, mention meds given and route, prescriptions, significant lab abnormalities, going to OR and other pertinent info. @ -Admission 88-year-old woman presents to the ED with complaints of left lower abdominal/flank pain and generalized weakness. Laboratory studies reviewed. CBC does show elevation in white count at 13 with elevation of neutrophils at 12.1. Chemistry panel significant for elevations in BUN/creatinine and creatinine of 45 and 1.36. Troponin elevated at 0.098 with repeats pending at this time. Urine does have evidence of infection with large leukocyte esterase, 53 red blood cells, greater than 182 white cells, many white blood cell clumps, and many bacteria. CT abdomen and pelvis did show left-sided hydronephrosis with perinephric stranding as well as some findings concerning for malignancy. Patient will be admitted for treatment of pyelonephritis with consults to infectious disease, cardiology, urology. Urine culture pending. Initiated ceftriaxone in the ED. Undiagnosed new problem with uncertain prognosis? @ -No Drug Therapy requiring intensive monitoring for toxicity (Heparin, Nitro, Insulin, Cardizem)? @ -No Were any procedures done? @ -No Diagnosis/symptom? @ -Pyelonephritis, elevated troponin Acute, or Chronic, or Acute on Chronic? @ -Acute Uncomplicated (without systemic symptoms) or Complicated (systemic symptoms)? @ -Complicated Side effects of treatment? @ -No Exacerbation, Progression, or Severe Exacerbation? @ -No Poses a threat to life or bodily function? How? (Chest pain, USA, CA, pneumonia, PE, COPD, DKA, ARF, appy, cholecystitis, CVA, Diverticulitis, Homicidal, Suicidal, threat to staff... and all critical care pts) @ -Possibly - Lab Data Result diagrams: 07/21/23 10:59 07/21/23 10:59 Lab Results 07/21/23 07/21/23 07/21/23 Range/Units 10:59 10:59 10:59 WBC 13.0 H (3.8-10.6) k/uL RBC 4.25 (3.80-5.40) m/uL Hgb 14.1 (11.4-16.0) gm/dL Hct 41.6 (34.0-46.0) % MCV 97.8 (80.0-100.0) fL MCH 33.3 (25.0-35.0) pg MCHC 34.0 (31.0-37.0) g/dL RDW 13.0 (11.5-15.5) % Plt Count 167 (150-450) k/uL MPV 9.5 Neutrophils % 93 % Lymphocytes % 3 % Monocytes % 3 % Eosinophils % 0 % Basophils % 0 % Neutrophils # 12.1 H (1.3-7.7) k/uL Lymphocytes # 0.4 L (1.0-4.8) k/uL Monocytes # 0.4 (0-1.0) k/uL Eosinophils # 0.0 (0-0.7) k/uL Basophils # 0.0 (0-0.2) k/uL PT 10.8 (10.0-12.5) sec INR 1.0 (<1.2) APTT 32.6 H (22.0-30.0) sec Sodium 135 L (137-145) mmol/L Potassium 3.9 (3.5-5.1) mmol/L Chloride 102 (98-107) mmol/L Carbon Dioxide 17 L (22-30) mmol/L Anion Gap 16 mmol/L BUN 45 H (7-17) mg/dL Creatinine 1.36 H (0.52-1.04) mg/dL Est GFR (CKD-EPI)AfAm 41 (>60 ml/min/1.73 sqM) Est GFR (CKD-EPI)NonAf 35 (>60 ml/min/1.73 sqM) Glucose 95 (74-99) mg/dL Plasma Lactic Acid Bryan (0.7-2.0) mmol/L Calcium 8.6 (8.4-10.2) mg/dL Magnesium (1.6-2.3) mg/dL Total Bilirubin 1.1 (0.2-1.3) mg/dL AST 59 H (14-36) U/L ALT 22 (4-34) U/L Alkaline Phosphatase 70 (38-126) U/L Troponin I (0.000-0.034) ng/mL Total Protein 6.2 L (6.3-8.2) g/dL Albumin 3.4 L (3.5-5.0) g/dL Amylase 37 (30-110) U/L Lipase 48 (23-300) U/L Urine Color Urine Appearance (Clear) Urine pH (5.0-8.0) Ur Specific [place] (1.001-1.035) Urine Protein (Negative) Urine Glucose (UA) (Negative) Urine Ketones (Negative) Urine Blood (Negative) Urine Nitrite (Negative) Urine Bilirubin (Negative) Urine Urobilinogen (<2.0) mg/dL Ur Leukocyte Esterase (Negative) Urine RBC (0-5) /hpf Urine WBC (0-5) /hpf Urine WBC Clumps (None) /hpf Urine Bacteria (None) /hpf Urine Mucus (None) /hpf Influenza Type A (PCR) (Not Detectd) Influenza Type B (PCR) (Not Detectd) RSV (PCR) (Not Detectd) SARS-CoV-2 (PCR) (Not Detectd) 07/21/23 07/21/23 07/21/23 Range/Units 10:59 10:59 10:59 WBC (3.8-10.6) k/uL RBC (3.80-5.40) m/uL Hgb (11.4-16.0) gm/dL Hct (34.0-46.0) % MCV (80.0-100.0) fL MCH (25.0-35.0) pg MCHC (31.0-37.0) g/dL RDW (11.5-15.5) % Plt Count (150-450) k/uL MPV Neutrophils % % Lymphocytes % % Monocytes % % Eosinophils % % Basophils % % Neutrophils # (1.3-7.7) k/uL Lymphocytes # (1.0-4.8) k/uL Monocytes # (0-1.0) k/uL Eosinophils # (0-0.7) k/uL Basophils # (0-0.2) k/uL PT (10.0-12.5) sec INR (<1.2) APTT (22.0-30.0) sec Sodium (137-145) mmol/L Potassium (3.5-5.1) mmol/L Chloride (98-107) mmol/L Carbon Dioxide (22-30) mmol/L Anion Gap mmol/L BUN (7-17) mg/dL Creatinine (0.52-1.04) mg/dL Est GFR (CKD-EPI)AfAm (>60 ml/min/1.73 sqM) Est GFR (CKD-EPI)NonAf (>60 ml/min/1.73 sqM) Glucose (74-99) mg/dL Plasma Lactic Acid Bryan 1.2 (0.7-2.0) mmol/L Calcium (8.4-10.2) mg/dL Magnesium (1.6-2.3) mg/dL Total Bilirubin (0.2-1.3) mg/dL AST (14-36) U/L ALT (4-34) U/L Alkaline Phosphatase (38-126) U/L Troponin I 0.098 H* (0.000-0.034) ng/mL Total Protein (6.3-8.2) g/dL Albumin (3.5-5.0) g/dL Amylase (30-110) U/L Lipase (23-300) U/L Urine Color Urine Appearance (Clear) Urine pH (5.0-8.0) Ur Specific [place] (1.001-1.035) Urine Protein (Negative) Urine Glucose (UA) (Negative) Urine Ketones (Negative) Urine Blood (Negative) Urine Nitrite (Negative) Urine Bilirubin (Negative) Urine Urobilinogen (<2.0) mg/dL Ur Leukocyte Esterase (Negative) Urine RBC (0-5) /hpf Urine WBC (0-5) /hpf Urine WBC Clumps (None) /hpf Urine Bacteria (None) /hpf Urine Mucus (None) /hpf Influenza Type A (PCR) Not Detected (Not Detectd) Influenza Type B (PCR) Not Detected (Not Detectd) RSV (PCR) Not Detected (Not Detectd) SARS-CoV-2 (PCR) Not Detected (Not Detectd) 07/21/23 07/21/23 Range/Units 12:06 14:01 WBC (3.8-10.6) k/uL RBC (3.80-5.40) m/uL Hgb (11.4-16.0) gm/dL Hct (34.0-46.0) % MCV (80.0-100.0) fL MCH (25.0-35.0) pg MCHC (31.0-37.0) g/dL RDW (11.5-15.5) % Plt Count (150-450) k/uL MPV Neutrophils % % Lymphocytes % % Monocytes % % Eosinophils % % Basophils % % Neutrophils # (1.3-7.7) k/uL Lymphocytes # (1.0-4.8) k/uL Monocytes # (0-1.0) k/uL Eosinophils # (0-0.7) k/uL Basophils # (0-0.2) k/uL PT (10.0-12.5) sec INR (<1.2) APTT (22.0-30.0) sec Sodium (137-145) mmol/L Potassium (3.5-5.1) mmol/L Chloride (98-107) mmol/L Carbon Dioxide (22-30) mmol/L Anion Gap mmol/L BUN (7-17) mg/dL Creatinine (0.52-1.04) mg/dL Est GFR (CKD-EPI)AfAm (>60 ml/min/1.73 sqM) Est GFR (CKD-EPI)NonAf (>60 ml/min/1.73 sqM) Glucose (74-99) mg/dL Plasma Lactic Acid Bryan (0.7-2.0) mmol/L Calcium (8.4-10.2) mg/dL Magnesium 2.4 H (1.6-2.3) mg/dL Total Bilirubin (0.2-1.3) mg/dL AST (14-36) U/L ALT (4-34) U/L Alkaline Phosphatase (38-126) U/L Troponin I (0.000-0.034) ng/mL Total Protein (6.3-8.2) g/dL Albumin (3.5-5.0) g/dL Amylase (30-110) U/L Lipase (23-300) U/L Urine Color Light Red Urine Appearance Cloudy H (Clear) Urine pH 7.0 (5.0-8.0) Ur Specific [place] 1.014 (1.001-1.035) Urine Protein 2+ H (Negative) Urine Glucose (UA) Negative (Negative) Urine Ketones 1+ H (Negative) Urine Blood Large H (Negative) Urine Nitrite Negative (Negative) Urine Bilirubin Negative (Negative) Urine Urobilinogen <2.0 (<2.0) mg/dL Ur Leukocyte Esterase Large H (Negative) Urine RBC 53 H (0-5) /hpf Urine WBC >182 H (0-5) /hpf Urine WBC Clumps Many H (None) /hpf Urine Bacteria Many H (None) /hpf Urine Mucus Rare H (None) /hpf Influenza Type A (PCR) (Not Detectd) Influenza Type B (PCR) (Not Detectd) RSV (PCR) (Not Detectd) SARS-CoV-2 (PCR) (Not Detectd) - EKG Data EKG Comments: KG shows A. fib at [address] or T-wave changes. QRS 88, QT/QTc 345/392. Disposition Clinical Impression: Pyelonephritis, Elevated troponin Disposition: ADMITTED IP TO THIS HOSP Condition: Good Referrals: Nonstaff,Physician [REFERRING] - 1-2 days Time of Disposition: 14:46
[2023-07-21 11:22] LABS: ALT 22 U/L (4-34); AST 59 U/L (14-36); African American GFR (CKD) 41 (>60 ml/min/1.73 sqM); Albumin 3.4 g/dL (3.5-5.0); Alkaline Phosphatase 70 U/L (38-126); Amylase 37 U/L (30-110); Anion Gap 16 mmol/L; Blood Urea Nitrogen 45 mg/dL (7-17); Calcium 8.6 mg/dL (8.4-10.2); Carbon Dioxide 17 mmol/L (22-30); Chloride 102 mmol/L (98-107); Glucose 95 mg/dL (74-99); Lipase 48 U/L (23-300); Non-African American GFR(CKD) 35 (>60 ml/min/1.73 sqM); Potassium 3.9 mmol/L (3.5-5.1); Sodium 135 mmol/L (137-145); Total Bilirubin 1.1 mg/dL (0.2-1.3); Total Protein 6.2 g/dL (6.3-8.2)
[2023-07-21 11:37] LABS: Partial Thromboplastin Time 32.6 sec (22.0-30.0); Prothrombin Time 10.8 sec (10.0-12.5)
[2023-07-21 11:44] LABS: Basophils % (A) 0 %; Eosinophils % (A) 0 %; HCT 41.6 % (34.0-46.0); HGB 14.1 gm/dL (11.4-16.0); Lymphocytes # (A) 0.4 k/uL (1.0-4.8); Lymphocytes % (A) 3 %; MCH 33.3 pg (25.0-35.0); MCV 97.8 fL (80.0-100.0); Mean Platelet Volume 9.5; Monocytes # (A) 0.4 k/uL (0-1.0); Monocytes % (A) 3 %; Neutrophils # (A) 12.1 k/uL (1.3-7.7); Neutrophils % (A) 93 %; Platelet Count 167 k/uL (150-450); RBC 4.25 m/uL (3.80-5.40)
[2023-07-21 12:59] LABS: Appearance,Urine Cloudy (Clear); Bacteria,Urine Many /hpf; Bilirubin,Urine Negative (Negative); Blood,Urine Large (Negative); Color,Urine Light Red; Glucose,Urine (UA) Negative (Negative); Ketones,Urine 1+ (Negative); Leukocyte Esterase,Urine Large (Negative); Mucus,Urine Rare /hpf; Nitrite,Urine Negative (Negative); Protein,Urine 2+ (Negative); RBC,Urine 53 /hpf (0-5); Specific Gravity,Urine 1.014 (1.001-1.035); Urobilinogen,Urine <2.0 mg/dL (<2.0); WBC,Urine >182 /hpf (0-5)
--- NOTE | 2023-07-21 13:58 | CT ---
EXAMINATION: CT ABDOMEN AND PELVIS WITH IV CONTRAST DATE OF EXAMINATION: 07/21/2023. COMPARISON: 02/23/2018. INDICATION: Left lower quadrant pain. PROCEDURE: Axial CT of the abdomen and pelvis was performed with contrast and sagittal and coronal reformatted images were performed. CT dose lowering techniques were used, to include: automated expos ure control, adjustment for patient size, and/or use of iterative reconstruction. 100 mL of Isovue-30 0 was given intravenously. FINDINGS: LOWER CHEST : There is a small left pleural effusion. The visualized lung bases otherwise appear dee ar. There is no pericardial effusion. ABDOMEN: Liver and Biliary system: Normal. Adrenal glands: Normal. Kidneys and ureters: Scattered simple cysts are seen within the right kidney. There is some mucosal e nhancement within the right renal collecting system and proximal right ureter which could potentially be inflammatory or infectious. There is a moderate left-sided hydronephrosis and significant peripel ari stranding as well as a small amount of fluid. There is some mucosal enhancement and soft tissue e nhancement in the proximal left ureter is malignancy in this location should be a consideration and u rology consult recommended. Question perforated collecting system. Spleen: Normal. Pancreas: Normal. Gallbladder: Normal. Lymph nodes, Peritoneum and mesentery: There is no mesenteric or retroperitoneal lymphadenopathy. Gastrointestinal tract: There are no dilated loops of bowel or free intraperitoneal air. The appe ndix is normal. There is moderate to significant sigmoid colonic diverticulosis without evidence of d iverticulitis. Aorta/IVC: There is significant vascular calcification throughout the abdominal aorta without evide nce of aneurysmal dilation or dissection. IVC normal. Abdominal wall: Normal. PELVIS: Fluid: There is no free fluid in the pelvis. Lymph Nodes: There is no pelvic or inguinal lymphadenopathy.. Urinary bladder: Normal. BONES: Scattered degenerative changes are seen throughout the spine. There are no acute osseous abno rmalities. ADDITIONAL SIGNIFICANT FINDINGS: None. IMPRESSION: 1. Moderate left-sided hydronephrosis and significant peripelvic stranding as well as a small amount of fluid. There is some mucosal enhancement and soft tissue enhancement in the proximal left ureter i s malignancy in this location should be a consideration and urology consult recommended. Question per forated collecting system. A component of hemorrhage may also be present due to the higher density th an the surrounding region. 2. Mucosal enhancement within the right renal collecting system and proximal ureter can be seen in th e setting of inflammation or infection. 3. Small sliding hiatal hernia. 4. Diverticulosis without evidence of diverticulitis. I. Small left pleural effusion.
[2023-07-21] MEDS ORDERED: NALOXONE 0.4 MG/ML 1 ML VIAL IV PRN (14:37)
[2023-07-21] MEDS ORDERED: KETOROLAC 15 MG/ML 1 ML VIAL IVP PRN (14:37)
[2023-07-21] MEDS ORDERED: ONDANSETRON 4 MG/2 ML VIAL IVP PRN (14:37)
[2023-07-21] MEDS: SODIUM CHLORIDE 0.9% 1,000 ML IV SCH (15:56)
[2023-07-21] MEDS: APIXABAN 5 MG TAB PO SCH (20:34)
[2023-07-21] MEDS: PRAVASTATIN SODIUM 40 MG TAB PO SCH (20:35)
--- NOTE | 2023-07-21 21:52 | HP ---
HISTORY AND PHYSICAL CHIEF COMPLAINT: Abdominal pain. HISTORY OF PRESENT ILLNESS: This is an 88-year-old woman with a past medical history of multiple medical problems, admitted with left-sided abdominal pain, which was worse in nature and there was not much radiation, some flank pain is also noted. The patient did not have any urinary symptoms. The patient came to [facility]. White count is elevated. The patient's troponin was also found to be elevated at 0.098. The patient also had a history of atrial fibrillation, was taking Eliquis. The CT scan showed multiple abnormalities including left hydronephrosis, possibility of pyelonephritis and possibility of malignancy is also being considered, and the patient was admitted for further evaluation and treatment. There is no history of any fever, rigors, or chills at this time. PAST MEDICAL HISTORY: Reviewed include atrial fibrillation, the rest of the history and rest of the chart is also reviewed. HOME MEDICATIONS: Reviewed include diltiazem, dose and rest of the medications are noted. ALLERGIES: Reviewed include codeine. FAMILY HISTORY: History of cancer in the family. SOCIAL HISTORY: History of daily alcohol, 1 glass of wine per day. REVIEW OF SYSTEMS: A 14-point review of systems negative except as mentioned earlier. PHYSICAL EXAMINATION: VITAL SIGNS: Pulse 82, blood pressure 111/62, respirations 18. HEENT: Conjunctivae normal. NECK: No jugular venous distention. CARDIOVASCULAR: S1, S2 muffled. RESPIRATIONS: Diminished at the bases. ABDOMEN: Soft, mild diffuse tenderness in the left side. No guarding, no rebound, no mass palpable. No ascites. Bowel sounds present. LEGS: No edema. NERVOUS SYSTEM: No focal deficits. SKIN: No ulcer, rash, bleeding. JOINTS: No active deforming arthropathy. LABORATORY DATA: Reviewed. ASSESSMENT: 1. Left-sided hydronephrosis with pyelonephritis, rule out ureteral neoplasm. 2. Troponin 0.098, rule out acute ieu-UJ-mtouyig-elevation myocardial infarction. 3. Possible acute UTI. 4. Atrial fibrillation. 5. Asthma. 6. Hyperlipidemia. 7. History of kidney stones. 8. History of ESBL. RECOMMENDATIONS AND DISCUSSION: This 88-year-old woman presented with multiple complex medical problems. We will monitor the patient closely, initiate broad-spectrum IV antibiotics. Otherwise, I would recommend also consultation with Infectious Disease and urology will resume the home medications. Prognosis guarded because of multiple complex medical conditions. Further recommendations to follow. See orders for details. MMODL / IJN: [id number] /
[2023-07-22] MEDS: SODIUM CHLORIDE 0.9% 1,000 ML IV SCH ×2 (06:41→11:12)
[2023-07-22] MEDS: ASCORBIC ACID 500 MG TAB PO SCH (07:52)
[2023-07-22] MEDS: ASPIRIN 81 MG PO SCH (07:53)
[2023-07-22] MEDS: CYANOCOBALAMIN 500 MCG TAB PO SCH (07:53)
[2023-07-22] MEDS: DILTIAZEM CD 180 MG CAP.ER.24H PO SCH (07:53)
[2023-07-22] MEDS: CHOLECALCIFEROL 25 MCG (1000 IU) TABLET PO SCH (07:53)
[2023-07-22] MEDS: APIXABAN 5 MG TAB PO SCH ×2 (07:53→19:57)
--- NOTE | 2023-07-22 09:02 | P.CONS ---
History of Present Illness - Reason for Consult Consult date: 07/21/23 - History of Present Illness Patient is a 88-year-old female with a past medical history significant for atrial fibrillation asthma hyperlipidemia MO pneumonia history of UTIs patient presenting to the hospital with lower abdominal pain patient pain has been mostly in the left lower abdominal area and going on for about 3 days mild to moderate intensity more of a dull ache without any radiation associated generalized weakness patient did mention that did have a last bowel movement about 4 days ago however the patient mention she is hardly eating anything over the last 3 days did have some incontinence of urine but denies having any hematuria or significant burning of the urine with the same with the patient presented to hospital on arrival to the ER the patient was afebrile and no fever have been called subsequently patient was nontachycardic hypertensive or hypoxic. She did have white count of 13,000 with a left shift BUN/creatinine has been mildly elevated AST was elevated ALT was normal troponins were elevated she did have a positive UA influenza RSV and COVID testing was negative patient did have a CT of abdominal pelvis moderate left-sided hydronephrosis and significant peripelvic stranding as well as small amount of fluid patient was started on ceftriaxone infectious disease was consulted for further management of antibiotic therapy Past Medical History Past Medical History: Atrial Fibrillation, Asthma, Hyperlipidemia, Myocardial Infarction ([place]), Pneumonia Additional Past Medical History / Comment(s): kidney stone, uti's most recently tx 05-28-16 with macrobid that didn't work and then levaquin-completed the abx., falls Last Myocardial Infarction Date:: 2010 History of Any Multi-Drug Resistant Organisms: ESBL Year Discovered:: 06/10/16 MDRO Source:: urine E.coli Past Surgical History: Heart Catheterization With Stent, Joint Replacement, Tonsillectomy Additional Past Surgical History / Comment(s): SOTO KNEE REPLACEMENT, KIDNEY STONE REMOVAL Past Anesthesia/Blood Transfusion Reactions: No Reported Reaction Date of Last Stent Placement:: 2010 Past Psychological History: No Psychological Hx Reported Smoking Status: Never smoker Past Alcohol Use History: Daily Past Drug Use History: None Reported - Past Family History Mother Family Medical History: Cancer Additional Family Medical History / Comment(s): breast cancer at age 75-lived to be 94 Father Family Medical History: Congestive Heart Failure (CHF) Additional Family Medical History / Comment(s): from CHF Medications and Allergies Home Medications Medication Instructions Recorded Confirmed Type Pravastatin Sodium [Pravachol] 40 mg PO HS 07/04/15 07/21/23 History Aspirin 81 mg PO DAILY 08/12/15 07/21/23 History Acetaminophen [Tylenol Arthritis] 650 - 1,300 mg PO Q8H PRN 11/03/21 07/21/23 History Alendronate Sodium [Fosamax] 70 mg PO SA 11/03/21 07/21/23 History Ascorbic Acid [Vitamin C] 1,000 mg PO DAILY 11/03/21 07/21/23 History Cholecalciferol [Vitamin D3 (25 25 mcg PO DAILY 11/03/21 07/21/23 History Mcg = 1000 Iu)] Cyanocobalamin (Vitamin B-12) 1,000 mcg PO DAILY 11/03/21 07/21/23 History [Vitamin B-12] dilTIAZem HCL [dilTIAZem HCL 24Hr 180 mg PO DAILY 11/03/21 07/21/23 History ER (CD)] Apixaban [Eliquis] 5 mg PO BID 05/14/23 07/21/23 History Allergies Allergy/AdvReac Type Severity Reaction Status Date / Time codeine Allergy Rash/Hives Verified 07/21/23 14:38 amoxicillin trihydrate AdvReac Nausea & Verified 07/21/23 14:38 [From Augmentin] Vomiting & Diarrhea potassium clavulanate AdvReac Nausea & Verified 07/21/23 14:38 [From Augmentin] Vomiting & Diarrhea Physical Exam Vitals: Vital Signs Temp Pulse Resp BP Pulse Ox 07/21/23 13:54 82 18 111/64 96 07/21/23 09:47 97.7 F 64 16 115/73 96 Intake and Output 07/21/23 07/21/23 07/21/23 06:59 14:59 22:59 Other: Weight 62.596 kg Results CBC & Chem 7: 07/22/23 09:14 07/22/23 09:14 Labs: Abnormal Lab Results - Last 24 Hours (Table) 07/21/23 07/21/23 07/21/23 Range/Units 10:59 10:59 10:59 WBC 13.0 H (3.8-10.6) k/uL Neutrophils # 12.1 H (1.3-7.7) k/uL Lymphocytes # 0.4 L (1.0-4.8) k/uL APTT 32.6 H (22.0-30.0) sec Sodium 135 L (137-145) mmol/L Carbon Dioxide 17 L (22-30) mmol/L BUN 45 H (7-17) mg/dL Creatinine 1.36 H (0.52-1.04) mg/dL Magnesium (1.6-2.3) mg/dL AST 59 H (14-36) U/L Troponin I (0.000-0.034) ng/mL Total Protein 6.2 L (6.3-8.2) g/dL Albumin 3.4 L (3.5-5.0) g/dL Urine Appearance (Clear) Urine Protein (Negative) Urine Ketones (Negative) Urine Blood (Negative) Ur Leukocyte Esterase (Negative) Urine RBC (0-5) /hpf Urine WBC (0-5) /hpf Urine WBC Clumps (None) /hpf Urine Bacteria (None) /hpf Urine Mucus (None) /hpf 07/21/23 07/21/23 07/21/23 Range/Units 10:59 12:06 14:01 WBC (3.8-10.6) k/uL Neutrophils # (1.3-7.7) k/uL Lymphocytes # (1.0-4.8) k/uL APTT (22.0-30.0) sec Sodium (137-145) mmol/L Carbon Dioxide (22-30) mmol/L BUN (7-17) mg/dL Creatinine (0.52-1.04) mg/dL Magnesium (1.6-2.3) mg/dL AST (14-36) U/L Troponin I 0.098 H* 0.081 H* (0.000-0.034) ng/mL Total Protein (6.3-8.2) g/dL Albumin (3.5-5.0) g/dL Urine Appearance Cloudy H (Clear) Urine Protein 2+ H (Negative) Urine Ketones 1+ H (Negative) Urine Blood Large H (Negative) Ur Leukocyte Esterase Large H (Negative) Urine RBC 53 H (0-5) /hpf Urine WBC >182 H (0-5) /hpf Urine WBC Clumps Many H (None) /hpf Urine Bacteria Many H (None) /hpf Urine Mucus Rare H (None) /hpf 07/21/23 Range/Units 14:01 WBC (3.8-10.6) k/uL Neutrophils # (1.3-7.7) k/uL Lymphocytes # (1.0-4.8) k/uL APTT (22.0-30.0) sec Sodium (137-145) mmol/L Carbon Dioxide (22-30) mmol/L BUN (7-17) mg/dL Creatinine (0.52-1.04) mg/dL Magnesium 2.4 H (1.6-2.3) mg/dL AST (14-36) U/L Troponin I (0.000-0.034) ng/mL Total Protein (6.3-8.2) g/dL Albumin (3.5-5.0) g/dL Urine Appearance (Clear) Urine Protein (Negative) Urine Ketones (Negative) Urine Blood (Negative) Ur Leukocyte Esterase (Negative) Urine RBC (0-5) /hpf Urine WBC (0-5) /hpf Urine WBC Clumps (None) /hpf Urine Bacteria (None) /hpf Urine Mucus (None) /hpf Assessment and Plan Plan: 1patient was in the hospital with left lower abdominal pain going on for 3 days patient noticed to have a elevated white count positive UA abnormal CT concerning for moderate left-sided hydronephrosis likely etiology of her pain and likely complicated UTI/pyelonephritis more likely pathogen will be the enteric gram-negative. 2Rocephin 2 g daily to continue while waiting for the culture to finalize. 3await urology evaluation and possible stenting of the left ureter we will follow on clinical condition and cultures to further adjust medication if needed Thank you for this consultation we will follow the patient along with you Dictation was produced using [employer] dictation software. please excuse any grammatical, word or spelling errors. Time with Patient: Greater than 30
[2023-07-22 10:15] LABS: African American GFR (CKD) 63 (>60 ml/min/1.73 sqM); Anion Gap 10 mmol/L; Blood Urea Nitrogen 31 mg/dL (7-17); Calcium 7.7 mg/dL (8.4-10.2); Carbon Dioxide 19 mmol/L (22-30); Chloride 107 mmol/L (98-107); Glucose 139 mg/dL (74-99); Non-African American GFR(CKD) 55 (>60 ml/min/1.73 sqM); Potassium 3.5 mmol/L (3.5-5.1); Sodium 136 mmol/L (137-145)
[2023-07-22 10:16] LABS: Basophils % (A) 0 %; Eosinophils % (A) 0 %; HCT 36.2 % (34.0-46.0); HGB 12.1 gm/dL (11.4-16.0); Lymphocytes # (A) 0.4 k/uL (1.0-4.8); Lymphocytes % (A) 4 %; MCH 33.5 pg (25.0-35.0); MCHC 33.5 g/dL (31.0-37.0); MCV 99.9 fL (80.0-100.0); Mean Platelet Volume 8.6; Monocytes # (A) 0.5 k/uL (0-1.0); Monocytes % (A) 5 %; Neutrophils # (A) 9.1 k/uL (1.3-7.7); Neutrophils % (A) 90 %; Platelet Count 168 k/uL (150-450); RBC 3.62 m/uL (3.80-5.40); RDW 12.7 % (11.5-15.5); WBC 10.1 k/uL (3.8-10.6)
--- NOTE | 2023-07-22 12:54 | P.CRDCN ---
History of Present Illness History of present illness: HISTORY OF PRESENT ILLNESS: This is a 88-year-old female with a past medical history significant for persistent atrial fibrillation, hyperlipidemia, and coronary artery disease with previous stenting. Patient follows with a radiologist at [facility], Dr. Bower. We have been asked to see the patient in consultation for elevated troponins. Patient examined at the bedside. Patient states on Tuesday afternoon she be and to have discomfort in the suprapubic area. She reports having a decreased appetite and minimal oral intake over the past few days. She also reports an episode of vomiting on Tuesday. She presented to the hospital for further evaluation. The patient was found to have UTI/pyelonephritis. She was started on IV antibiotics and infectious disease and urology were consulted. The patient denies any chest pain or pressure. She denies any shortness of breath. Vital signs are stable. * EKG reveals atrial fibrillation with controlled ventricular rate * Laboratory data: Troponin 0.098. 0.081. 0.075. 0.064. * Current home cardiac medications include Cardizem CD 180 mg daily, pravastatin 40 mg at night, aspirin 81 mg daily, and Eliquis 5 mg twice a day * Most recent echocardiogram obtained in 2016 revealed ejection fraction 55-60%, mild pulmonary hypertension, mild TR * Cardiac catheterization history: May 2011 with stenting to the circumflex and LAD REVIEW OF SYSTEMS: At the time of my exam: CONSTITUTIONAL: Denies fever or chills. HEENT: Denies blurred vision, vision changes, or eye pain. Denies hemoptysis CARDIOVASCULAR: Denies chest pain. Denies orthopnea. Denies PND. Denies palpitations RESPIRATORY: Denies shortness of breath. GASTROINTESTINAL: Denies abdominal pain. Denies nausea or vomiting. HEMATOLOGIC: Denies bleeding disorders. GENITOURINARY: Denies any blood in urine. SKIN: Denies pruitis. Denies rash. PHYSICAL EXAM: VITAL SIGNS: Reviewed. GENERAL: Well-developed in no acute distress. HEENT: Head is normocephalic. Pupils are equal, round. Sclerae anicteric. Mucous membranes of the mouth are moist. Neck supple. No JVD or thyromegaly LUNGS: Respirations even and unlabored. Lungs essentially clear to auscultation bilaterally. HEART: Irregular rate and rhythm. S1 and S2 heard. ABDOMEN: Soft. Nondistended. Nontender. EXTREMITIES: Normal range of motion. No clubbing or cyanosis. Peripheral pulses intact. No lower extremity edema NEUROLOGIC: Awake and alert. Oriented x 3. ASSESSMENT: Urinary tract infection Pyelonephritis Leukocytosis Abnormal troponins, flat, likely secondary to infectious process, no evidence of acute coronary syndrome Persistent atrial fibrillation Coronary artery disease with previous stenting, 2010 Hyperlipidemia PLAN: Infectious disease and urology following. Continue antibiotics per ID service. An acute coronary event has been ruled out Obtain 2-D echo to assess cardiac structure and function Resume home cardiac medications Continue current dose of Eliquis 5 mg twice a day. Continue aspirin 81 mg daily. If patient has any issues with bleeding, may discontinue aspirin. Further recommendations pending patient's course Patient to follow-up post discharge with her primary tea taster out of [facility] Nurse practitioner note has been reviewed by physician. Signing provider agrees with the documented findings, assessment, and plan of care. Past Medical History Past Medical History: Atrial Fibrillation, Asthma, Hyperlipidemia, Myocardial Infarction ([place]), Pneumonia Additional Past Medical History / Comment(s): kidney stone, uti's most recently tx 05-28-16 with macrobid that didn't work and then levaquin-completed the abx., falls Last Myocardial Infarction Date:: 2010 History of Any Multi-Drug Resistant Organisms: ESBL Date of last positivie culture/infection: 06/10/16 MDRO Source:: urine E.coli Past Surgical History: Heart Catheterization With Stent, Joint Replacement, Tonsillectomy Additional Past Surgical History / Comment(s): SOTO KNEE REPLACEMENT, KIDNEY STONE REMOVAL Past Anesthesia/Blood Transfusion Reactions: No Reported Reaction Date of Last Stent Placement:: 2010 Past Psychological History: No Psychological Hx Reported Smoking Status: Never smoker Past Alcohol Use History: Daily Past Drug Use History: None Reported - Past Family History Mother Family Medical History: Cancer Additional Family Medical History / Comment(s): breast cancer at age 75-lived to be 94 Father Family Medical History: Congestive Heart Failure (CHF) Additional Family Medical History / Comment(s): from CHF Medications and Allergies Home Medications Medication Instructions Recorded Confirmed Type Pravastatin Sodium [Pravachol] 40 mg PO HS 07/04/15 07/21/23 History Aspirin 81 mg PO DAILY 08/12/15 07/21/23 History Acetaminophen [Tylenol Arthritis] 650 - 1,300 mg PO Q8H PRN 11/03/21 07/21/23 History Alendronate Sodium [Fosamax] 70 mg PO SA 11/03/21 07/21/23 History Ascorbic Acid [Vitamin C] 1,000 mg PO DAILY 11/03/21 07/21/23 History Cholecalciferol [Vitamin D3 (25 25 mcg PO DAILY 11/03/21 07/21/23 History Mcg = 1000 Iu)] Cyanocobalamin (Vitamin B-12) 1,000 mcg PO DAILY 11/03/21 07/21/23 History [Vitamin B-12] dilTIAZem HCL [dilTIAZem HCL 24Hr 180 mg PO DAILY 11/03/21 07/21/23 History ER (CD)] Apixaban [Eliquis] 5 mg PO BID 05/14/23 07/21/23 History Allergies Allergy/AdvReac Type Severity Reaction Status Date / Time codeine Allergy Rash/Hives Verified 07/21/23 14:38 amoxicillin trihydrate AdvReac Nausea & Verified 07/21/23 14:38 [From Augmentin] Vomiting & Diarrhea potassium clavulanate AdvReac Nausea & Verified 07/21/23 14:38 [From Augmentin] Vomiting & Diarrhea Physical Exam Vitals: Vital Signs Temp Pulse Pulse Resp BP BP Pulse Ox 07/22/23 11:13 90 07/22/23 08:00 98.1 F 90 16 122/60 96 07/22/23 04:00 97.9 F 89 18 139/71 95 07/22/23 00:00 97.9 F 92 19 127/63 98 07/21/23 21:17 97.9 F 85 19 132/65 97 07/21/23 18:07 98.6 F 86 18 111/64 07/21/23 13:54 82 18 111/64 96 Intake and Output 07/21/23 07/22/23 07/22/23 22:59 06:59 14:59 Intake Total 225 Balance 225 Intake: Oral 225 Other: Voiding Method Toilet Toilet Toilet Diaper Diaper Diaper # Voids 1 Weight 62.596 kg Results 07/22/23 09:14 07/22/23 09:14 Cardiac Enzymes 07/21/23 07/21/23 07/21/23 Range/Units 14:01 16:51 19:54 Troponin I 0.081 H* 0.075 H* 0.064 H* (0.000-0.034) ng/mL CBC 07/22/23 Range/Units 09:14 WBC 10.1 (3.8-10.6) k/uL RBC 3.62 L (3.80-5.40) m/uL Hgb 12.1 (11.4-16.0) gm/dL Hct 36.2 (34.0-46.0) % Plt Count 168 (150-450) k/uL Comprehensive Metabolic Panel 07/22/23 Range/Units 09:14 Sodium 136 L (137-145) mmol/L Potassium 3.5 (3.5-5.1) mmol/L Chloride 107 (98-107) mmol/L Carbon Dioxide 19 L (22-30) mmol/L BUN 31 H (7-17) mg/dL Creatinine 0.95 (0.52-1.04) mg/dL Glucose 139 H (74-99) mg/dL Calcium 7.7 L (8.4-10.2) mg/dL Current Medications Generic Name Dose Route Start Last Admin Trade Name Freq PRN Reason Stop Dose Admin Apixaban 5 mg 07/21/23 21:00 07/22/23 07:53 Apixaban 5 Mg Tab PO 5 mg BID LUCIO Administration Protocol Ascorbic Acid 1,000 mg 07/22/23 09:00 07/22/23 07:52 Ascorbic Acid 500 Mg Tab PO 1,000 mg DAILY LUCIO Administration Aspirin 81 mg 07/22/23 09:00 07/22/23 07:53 Aspirin 81 Mg PO 81 mg DAILY LUCIO Administration Cholecalciferol 25 mcg 07/22/23 09:00 07/22/23 07:53 Cholecalciferol 25 Mcg (1000 Iu) Tablet PO 25 mcg DAILY LUCIO Administration Cyanocobalamin 1,000 mcg 07/22/23 09:00 07/22/23 07:53 Cyanocobalamin 500 Mcg Tab PO 1,000 mcg DAILY LUCIO Administration Diltiazem HCl 180 mg 07/22/23 09:00 07/22/23 07:53 Diltiazem Cd 180 Mg Cap.Er.24h PO 180 mg DAILY LUCIO Administration Hydromorphone HCl 0.5 mg 07/21/23 14:37 Hydromorphone 0.5 Mg/0.5 Ml Syringe IVP Q3HR PRN Moderate Pain (Scale 4 to 6) Sodium Chloride 1,000 mls @ 75 mls/hr 07/21/23 14:45 07/22/23 11:12 Saline 0.9% IV Not Given .[id number] [facility] Ceftriaxone Sodium 2 gm/ 50 mls @ 100 mls/hr 07/22/23 09:00 07/22/23 07:52 Sodium Chloride IVPB 100 mls/hr Q24HR LUCIO Administration Protocol Naloxone HCl 0.2 mg 07/21/23 14:37 Naloxone 0.4 Mg/Ml 1 Ml Vial IV Q2M PRN Opioid Reversal Non-Formulary Medication 70 mg 07/23/23 09:00 Alendronate Sodium [Fosamax] PO SA [facility] Ondansetron HCl 4 mg 07/21/23 14:37 Ondansetron 4 Mg/2 Ml Vial IVP Q8HR PRN Nausea And Vomiting Pravastatin Sodium 40 mg 07/21/23 21:00 07/21/23 20:35 Pravastatin Sodium 40 Mg Tab PO 40 mg HS LUCIO Administration Intake and Output 07/21/23 07/22/23 07/22/23 22:59 06:59 14:59 Intake Total 225 Balance 225 Intake: Oral 225 Other: Voiding Method Toilet Toilet Toilet Diaper Diaper Diaper # Voids 1 Weight 62.596 kg 07/22/23 09:14 07/22/23 09:14
--- NOTE | 2023-07-22 12:56 | P.GSCN ---
History of Present Illness Consult date: 07/22/23 Reason for Consult: bilateral hydronephrosis History of present illness: this is an 88-year-old female presented to the hospital with left-sided abdominal pain. The ER she underwent a CT abdomen and pelvis showed evidence of bilateral hydronephrosis, there was minimal hydronephrosis on the right and moderate on the left. There was significant amount of stranding surrounding the left kidney. She denies any fevers, chills, nausea or vomiting. On presentation her UA is concerning for UTI, she did have evidence of leukocytosis at 13,000. Denies any history of recurrent UTIs but does have history of right- sided staghorn calculi requiring PCNL at [facility] 10 years ago. This morning on evaluation pain is unchanged, she is currently on IV abx and infectious disease is on consult Review of Systems - Constitutional Denies fever, Denies weight loss - Cardiovascular Denies chest pain, Denies shortness of breath - Respiratory Denies cough, Denies 7 - Gastrointestinal Reports abdominal pain, Denies nausea, Denies vomiting - Genitourinary Genitourinary: Denies dysuria Past Medical History Past Medical History: Atrial Fibrillation, Asthma, Hyperlipidemia, Myocardial Infarction (SD), Pneumonia Additional Past Medical History / Comment(s): kidney stone, uti's most recently tx 05-28-16 with macrobid that didn't work and then levaquin-completed the abx., falls Last Myocardial Infarction Date:: 2010 History of Any Multi-Drug Resistant Organisms: ESBL Year Discovered:: 06/10/16 MDRO Source:: urine E.coli Past Surgical History: Heart Catheterization With Stent, Joint Replacement, Tonsillectomy Additional Past Surgical History / Comment(s): SOTO KNEE REPLACEMENT, KIDNEY STONE REMOVAL Past Anesthesia/Blood Transfusion Reactions: No Reported Reaction Date of Last Stent Placement:: 2010 Past Psychological History: No Psychological Hx Reported Smoking Status: Never smoker Past Alcohol Use History: Daily Past Drug Use History: None Reported - Past Family History Mother Family Medical History: Cancer Additional Family Medical History / Comment(s): breast cancer at age 75-lived to be 94 Father Family Medical History: Congestive Heart Failure (CHF) Additional Family Medical History / Comment(s): from CHF Medications and Allergies Home Medications Medication Instructions Recorded Confirmed Type Pravastatin Sodium [Pravachol] 40 mg PO HS 07/04/15 07/21/23 History Aspirin 81 mg PO DAILY 08/12/15 07/21/23 History Acetaminophen [Tylenol Arthritis] 650 - 1,300 mg PO Q8H PRN 11/03/21 07/21/23 History Alendronate Sodium [Fosamax] 70 mg PO SA 11/03/21 07/21/23 History Ascorbic Acid [Vitamin C] 1,000 mg PO DAILY 11/03/21 07/21/23 History Cholecalciferol [Vitamin D3 (25 25 mcg PO DAILY 11/03/21 07/21/23 History Mcg = 1000 Iu)] Cyanocobalamin (Vitamin B-12) 1,000 mcg PO DAILY 11/03/21 07/21/23 History [Vitamin B-12] dilTIAZem HCL [dilTIAZem HCL 24Hr 180 mg PO DAILY 11/03/21 07/21/23 History ER (CD)] Apixaban [Eliquis] 5 mg PO BID 05/14/23 07/21/23 History Allergies Allergy/AdvReac Type Severity Reaction Status Date / Time codeine Allergy Rash/Hives Verified 07/21/23 14:38 amoxicillin trihydrate AdvReac Nausea & Verified 07/21/23 14:38 [From Augmentin] Vomiting & Diarrhea potassium clavulanate AdvReac Nausea & Verified 07/21/23 14:38 [From Augmentin] Vomiting & Diarrhea Surgical - Exam Vital Signs Temp Pulse Resp BP Pulse Ox 97.7 F 64 16 115/73 96 07/21/23 09:47 07/21/23 09:47 07/21/23 09:47 07/21/23 09:47 07/21/23 09:47 - General no distress, moderate pain - Eyes normal ocular movement, no pale - Respiratory normal expansion, normal respiratory effort - Abdomen Abdomen: soft, non tender - Psychiatric oriented to time, oriented to person, oriented to place Results - Labs 07/22/23 09:14 07/22/23 09:14 Abnormal Lab Results - Last 24 Hours (Table) 07/21/23 07/21/23 07/21/23 Range/Units 12:06 14:01 14:01 RBC (3.80-5.40) m/uL Neutrophils # (1.3-7.7) k/uL Lymphocytes # (1.0-4.8) k/uL Sodium (137-145) mmol/L Carbon Dioxide (22-30) mmol/L BUN (7-17) mg/dL Glucose (74-99) mg/dL Calcium (8.4-10.2) mg/dL Magnesium 2.4 H (1.6-2.3) mg/dL Troponin I 0.081 H* (0.000-0.034) ng/mL Urine Appearance Cloudy H (Clear) Urine Protein 2+ H (Negative) Urine Ketones 1+ H (Negative) Urine Blood Large H (Negative) Ur Leukocyte Esterase Large H (Negative) Urine RBC 53 H (0-5) /hpf Urine WBC >182 H (0-5) /hpf Urine WBC Clumps Many H (None) /hpf Urine Bacteria Many H (None) /hpf Urine Mucus Rare H (None) /hpf 07/21/23 07/21/23 07/22/23 Range/Units 16:51 19:54 09:14 RBC 3.62 L (3.80-5.40) m/uL Neutrophils # 9.1 H (1.3-7.7) k/uL Lymphocytes # 0.4 L (1.0-4.8) k/uL Sodium (137-145) mmol/L Carbon Dioxide (22-30) mmol/L BUN (7-17) mg/dL Glucose (74-99) mg/dL Calcium (8.4-10.2) mg/dL Magnesium (1.6-2.3) mg/dL Troponin I 0.075 H* 0.064 H* (0.000-0.034) ng/mL Urine Appearance (Clear) Urine Protein (Negative) Urine Ketones (Negative) Urine Blood (Negative) Ur Leukocyte Esterase (Negative) Urine RBC (0-5) /hpf Urine WBC (0-5) /hpf Urine WBC Clumps (None) /hpf Urine Bacteria (None) /hpf Urine Mucus (None) /hpf 07/22/23 Range/Units 09:14 RBC (3.80-5.40) m/uL Neutrophils # (1.3-7.7) k/uL Lymphocytes # (1.0-4.8) k/uL Sodium 136 L (137-145) mmol/L Carbon Dioxide 19 L (22-30) mmol/L BUN 31 H (7-17) mg/dL Glucose 139 H (74-99) mg/dL Calcium 7.7 L (8.4-10.2) mg/dL Magnesium (1.6-2.3) mg/dL Troponin I (0.000-0.034) ng/mL Urine Appearance (Clear) Urine Protein (Negative) Urine Ketones (Negative) Urine Blood (Negative) Ur Leukocyte Esterase (Negative) Urine RBC (0-5) /hpf Urine WBC (0-5) /hpf Urine WBC Clumps (None) /hpf Urine Bacteria (None) /hpf Urine Mucus (None) /hpf Diabetes panel 07/22/23 Range/Units 09:14 Sodium 136 L (137-145) mmol/L Potassium 3.5 (3.5-5.1) mmol/L Chloride 107 (98-107) mmol/L Carbon Dioxide 19 L (22-30) mmol/L BUN 31 H (7-17) mg/dL Creatinine 0.95 (0.52-1.04) mg/dL Glucose 139 H (74-99) mg/dL Calcium 7.7 L (8.4-10.2) mg/dL Calcium panel 07/22/23 Range/Units 09:14 Calcium 7.7 L (8.4-10.2) mg/dL Pituitary panel 07/22/23 Range/Units 09:14 Sodium 136 L (137-145) mmol/L Potassium 3.5 (3.5-5.1) mmol/L Chloride 107 (98-107) mmol/L Carbon Dioxide 19 L (22-30) mmol/L BUN 31 H (7-17) mg/dL Creatinine 0.95 (0.52-1.04) mg/dL Glucose 139 H (74-99) mg/dL Calcium 7.7 L (8.4-10.2) mg/dL Adrenal panel 07/22/23 Range/Units 09:14 Sodium 136 L (137-145) mmol/L Potassium 3.5 (3.5-5.1) mmol/L Chloride 107 (98-107) mmol/L Carbon Dioxide 19 L (22-30) mmol/L BUN 31 H (7-17) mg/dL Creatinine 0.95 (0.52-1.04) mg/dL Glucose 139 H (74-99) mg/dL Calcium 7.7 L (8.4-10.2) mg/dL Assessment and Plan Assessment: 88 year-old female admitted to the hospital with UTI and bilateral hydronephrosis minimal on the right. On the left with stranding surrounding the left kidney. Having left abdominal pain. Her white count is trending down, her creatinine did trend down to 0.9. At this time given improve kidney function and white count recommend continued observation with IV antibiotics. if patient's continues to have persistent pain might require stent, discussed with her given the enhancement she will need an outpatient CT urogram in 3-4 weeks to assess resolution of the enhancement -IV antibiotics, follow up on urine culture -will reassess tomorrow
--- NOTE | 2023-07-22 13:29 | PN ---
PROGRESS NOTE DATE OF SERVICE: 07/22/2023 SUBJECTIVE: This is an 88-year-old woman who was admitted with left-sided hydronephrosis and pyelonephritis, is being also worked up to rule out possible ureteral neoplasm. The troponin is also elevated and cardiology has seen the patient and thought abnormal troponins secondary to infectious process. Urology recommended to continue observation, IV antibiotics. No chest pain, no palpitation. PAST MEDICAL HISTORY: Reviewed. REVIEW OF SYSTEMS: A 14-point review is negative except as mentioned earlier. CURRENT MEDICATIONS: Reviewed include Rocephin. PHYSICAL EXAMINATION: VITAL SIGNS: Pulse is 90, blood pressure 122/60, respirations 16. CHEST: Clear to auscultation. CARDIOVASCULAR: S1, S2. ABDOMEN: Soft, minimal tenderness. LABORATORY DATA: Reviewed. Cultures are pending at this time. ASSESSMENT: 1. Hydronephrosis and pyelonephritis, rule out ureteral neoplasm per CAT scan. 2. Troponin 0.098. Acute coronary syndrome per Cardiology, possibly secondary to infectious process. 3. Possible acute UTI. 4. Atrial fibrillation. 5. Asthma. 6. Hyperlipidemia. 7. History of kidney stones. 8. History of ESBL. RECOMMENDATIONS: Recommended to continue current management and continue symptomatic treatment. Otherwise, we will continue the antibiotics. Follow closely with multiple consultants. Cardiology input appreciated. The patient is on apixaban and antiplatelets. Recommend repeat labs. Guarded prognosis. Further recommendations to follow closely with Urology. SERENA / SHARRI: [id number] /
--- NOTE | 2023-07-22 13:36 | XR ---
EXAMINATION TYPE: XR chest 1V portable DATE OF EXAM: 07/22/2023 COMPARISON: 11/05/2020. HISTORY: CHF. TECHNIQUE: Single frontal view of the chest is obtained. FINDINGS: There is no focal area of consolidation. The cardiac silhouette is mildly enlarged and the pulmonary vessels appear to be within normal limits. IMPRESSION: Cardiomegaly with no definitive acute findings.
--- NOTE | 2023-07-22 16:51 | P.PN ---
Subjective Progress Note Date: 07/22/23 Principal diagnosis: Reason for follow-up his complicated urinary tract infection Patient is a 88-year-old female with a past medical history significant for atrial fibrillation asthma hyperlipidemia [place] pneumonia history of UTIs patient presenting to the hospital with lower abdominal pain, patient workup including CT of abdominal pelvis with evidence of moderate left-sided hydronephrosis, did have a positive UA and elevated white count concerning for complicated UTI. On today's evaluation that is 07/22/2023 the patient remains to be afebrile, the patient is breathing comfortably on room air and no need for oxygen. The patient denies shortness of breath denies any chest pain or cough, patient denies nausea/vomiting or diarrhea and the patient left-sided abdominal pain has slightly decreased in intensity. Patient white count normalized to 10.1, creatinine 0.95, cultures pending Objective - Vital Signs Vital signs: Vital Signs Temp 98.1 F 07/22/23 08:00 Pulse 90 07/22/23 11:13 Resp 16 07/22/23 08:00 BP 122/60 07/22/23 08:00 Pulse Ox 96 07/22/23 08:00 FiO2 Intake & Output 07/21/23 07/22/23 07/22/23 18:59 06:59 18:59 Intake Total 225 Balance 225 Weight 62.596 kg 62.596 kg Intake: Oral 225 Other: Voiding Method Toilet Toilet Diaper Diaper # Voids 1 - Exam GENERAL DESCRIPTION: An elderly female lying in bed in no distress RESPIRATORY SYSTEM: Unlabored breathing , clear to auscultation anteriorly HEART: S1 S2 regular rate and rhythm , ABDOMEN: Soft , no tenderness EXTREMITIES: No edema feet - Labs CBC & Chem 7: 07/22/23 09:14 07/22/23 09:14 Labs: Abnormal Lab Results - Last 24 Hours (Table) 07/21/23 07/21/23 07/21/23 Range/Units 12:06 14:01 14:01 RBC (3.80-5.40) m/uL Neutrophils # (1.3-7.7) k/uL Lymphocytes # (1.0-4.8) k/uL Sodium (137-145) mmol/L Carbon Dioxide (22-30) mmol/L BUN (7-17) mg/dL Glucose (74-99) mg/dL Calcium (8.4-10.2) mg/dL Magnesium 2.4 H (1.6-2.3) mg/dL Troponin I 0.081 H* (0.000-0.034) ng/mL Urine Appearance Cloudy H (Clear) Urine Protein 2+ H (Negative) Urine Ketones 1+ H (Negative) Urine Blood Large H (Negative) Ur Leukocyte Esterase Large H (Negative) Urine RBC 53 H (0-5) /hpf Urine WBC >182 H (0-5) /hpf Urine WBC Clumps Many H (None) /hpf Urine Bacteria Many H (None) /hpf Urine Mucus Rare H (None) /hpf 07/21/23 07/21/23 07/22/23 Range/Units 16:51 19:54 09:14 RBC 3.62 L (3.80-5.40) m/uL Neutrophils # 9.1 H (1.3-7.7) k/uL Lymphocytes # 0.4 L (1.0-4.8) k/uL Sodium (137-145) mmol/L Carbon Dioxide (22-30) mmol/L BUN (7-17) mg/dL Glucose (74-99) mg/dL Calcium (8.4-10.2) mg/dL Magnesium (1.6-2.3) mg/dL Troponin I 0.075 H* 0.064 H* (0.000-0.034) ng/mL Urine Appearance (Clear) Urine Protein (Negative) Urine Ketones (Negative) Urine Blood (Negative) Ur Leukocyte Esterase (Negative) Urine RBC (0-5) /hpf Urine WBC (0-5) /hpf Urine WBC Clumps (None) /hpf Urine Bacteria (None) /hpf Urine Mucus (None) /hpf 07/22/23 Range/Units 09:14 RBC (3.80-5.40) m/uL Neutrophils # (1.3-7.7) k/uL Lymphocytes # (1.0-4.8) k/uL Sodium 136 L (137-145) mmol/L Carbon Dioxide 19 L (22-30) mmol/L BUN 31 H (7-17) mg/dL Glucose 139 H (74-99) mg/dL Calcium 7.7 L (8.4-10.2) mg/dL Magnesium (1.6-2.3) mg/dL Troponin I (0.000-0.034) ng/mL Urine Appearance (Clear) Urine Protein (Negative) Urine Ketones (Negative) Urine Blood (Negative) Ur Leukocyte Esterase (Negative) Urine RBC (0-5) /hpf Urine WBC (0-5) /hpf Urine WBC Clumps (None) /hpf Urine Bacteria (None) /hpf Urine Mucus (None) /hpf Assessment and Plan (1) UTI (urinary tract infection) Current Visit: No Status: Acute Code(s): N39.0 - URINARY TRACT INFECTION, SITE NOT SPECIFIED SNOMED Code(s): 49518296 Plan: 1patient was in the hospital with left lower abdominal pain going on for 3 days patient noticed to have a elevated white count positive UA abnormal CT concerning for moderate left-sided hydronephrosis likely etiology of her pain and likely complicated UTI/pyelonephritis more likely pathogen will be the enteric gram-negative. 2patient white count has normalized, cultures are pending, patient to continue with Rocephin 2 g daily while waiting for the culture to finalize. 3await urology evaluation and possible stenting of the left ureter at the bedside questions were answered Dictation was produced using [employer] dictation software. please excuse any grammatical, word or spelling errors. Time with Patient: Less than 30
[2023-07-22] MEDS: PRAVASTATIN SODIUM 40 MG TAB PO SCH (19:58)
[2023-07-23] MEDS: SODIUM CHLORIDE 0.9% 1,000 ML IV SCH ×2 (05:54→20:30)
[2023-07-23] MEDS: DILTIAZEM CD 180 MG CAP.ER.24H PO SCH (08:06)
[2023-07-23] MEDS: APIXABAN 5 MG TAB PO SCH ×2 (08:06→20:30)
[2023-07-23] MEDS: ASCORBIC ACID 500 MG TAB PO SCH (08:06)
[2023-07-23] MEDS: CHOLECALCIFEROL 25 MCG (1000 IU) TABLET PO SCH (08:06)
[2023-07-23] MEDS: CYANOCOBALAMIN 500 MCG TAB PO SCH (08:06)
[2023-07-23] MEDS: ASPIRIN 81 MG PO SCH (08:06)
[2023-07-23] MEDS ORDERED: NON FORMULARY DRUG (Alendronate Sodium [Fosamax] 70 MG Tablet) PO SCH (09:00)
--- NOTE | 2023-07-23 11:11 | P.PN ---
Subjective Progress Note Date: 07/23/23 The patient is in the hospital with abdominal pain and a left pyelonephritis. She is found to have bilateral hydronephrosis left greater than right without obvious cause. She was seen by yesterday. SHe is feeling better but still has some discomfort. Objective - Vital Signs Vital signs: Vital Signs Temp 96.8 F L 07/23/23 08:00 Pulse 94 07/23/23 08:00 Resp 16 07/23/23 08:00 BP 128/70 07/23/23 08:00 Pulse Ox 95 07/23/23 08:00 FiO2 Intake & Output 07/22/23 07/23/23 07/23/23 18:59 06:59 18:59 Intake Total 335 540 120 Balance 335 540 120 Intake: Oral 335 540 120 Other: Voiding Method Toilet Diaper Diaper Diaper - Labs CBC & Chem 7: 07/22/23 09:14 07/22/23 09:14 Labs: Microbiology - Last 24 Hours (Table) 07/21/23 12:06 Urine Culture - Preliminary Urine,Catheterized Gram Neg Bacilli 07/21/23 15:39 Blood Culture - Preliminary Blood 07/21/23 15:35 Blood Culture - Preliminary Blood Assessment and Plan Assessment: Impression: Left pyelonephritis. Bilateral mild [place] probably related to pyelonephritis. Recommendations: She is growing a gram-negative carlos. She should continue with the same medical regimen. Once oral antibiotics are appropriate and if she feels well she can go home for follow-up evaluation by Dr. Wisdom If she continues with significant discomfort this may have to be done sooner however
[2023-07-23] MEDS: HYDROmorphone 0.5 MG/0.5 ML SYRINGE IVP PRN ×2 (11:28→13:22)
[2023-07-23 12:05] LABS: Basophils % (A) 0 %; Eosinophils # (A) 0.1 k/uL (0-0.7); Eosinophils % (A) 1 %; HCT 38.6 % (34.0-46.0); HGB 12.6 gm/dL (11.4-16.0); Lymphocytes # (A) 0.6 k/uL (1.0-4.8); Lymphocytes % (A) 6 %; MCH 32.6 pg (25.0-35.0); MCHC 32.7 g/dL (31.0-37.0); MCV 99.8 fL (80.0-100.0); Monocytes # (A) 0.5 k/uL (0-1.0); Monocytes % (A) 5 %; Neutrophils # (A) 8.8 k/uL (1.3-7.7); Neutrophils % (A) 88 %; Platelet Count 193 k/uL (150-450); RBC 3.87 m/uL (3.80-5.40); RDW 12.8 % (11.5-15.5)
[2023-07-23 12:22] LABS: African American GFR (CKD) 77 (>60 ml/min/1.73 sqM); Anion Gap 10 mmol/L; Blood Urea Nitrogen 19 mg/dL (7-17); Calcium 7.8 mg/dL (8.4-10.2); Carbon Dioxide 19 mmol/L (22-30); Chloride 107 mmol/L (98-107); Glucose 109 mg/dL (74-99); Non-African American GFR(CKD) 66 (>60 ml/min/1.73 sqM); Potassium 3.5 mmol/L (3.5-5.1); Sodium 136 mmol/L (137-145)
--- NOTE | 2023-07-23 18:42 | CA ---
Transthoracic Echo Report Name: Perri Solomon Age: 88 Gender: F : 1935 Exam Date: 07/22/2023 15:45 Exam Location: [place] [facility] Ht (in): 62 Wt (lb): 138 Ordering Physician: Kathi Hoskins Attending/Referring Phys: [id number], [place]ato Nursing Administrator Hernando Escamilla Procedure CPT: Indications: LV function, abnormal troponins Cardiac Hx: Technical Quality: Technically difficult study Contrast 1: Definity Total Dose (mL): 2 Contrast 2: Total Dose (mL): MEASUREMENTS (Male / Female) Normal Values 2D ECHO LV Diastolic Diameter PLAX 4.1 cm 4.2 - 5.9 / 3.9 - 5.3 cm LV Systolic Diameter PLAX 2.7 cm IVS Diastolic Thickness 0.8 cm 0.6 - 1.0 / 0.6 - 0.9 cm LVPW Diastolic Thickness 1.1 cm 0.6 - 1.0 / 0.6 - 0.9 cm LV Relative Wall Thickness 0.5 RV Internal Dim ED PLAX 4.1 cm LVOT Diameter 2.0 cm Aortic Root Diameter 2.6 cm LA Systolic Diameter LX 3.5 cm 3.0 - 4.0 / 2.7 - 3.8 cm LV Diastolic Volume MOD BP 34.4 cm??? 67 - 155 / 56 - 104 cm??? LV Systolic Volume MOD BP 18.4 cm??? 22 - 58 / 19 - 49 cm??? LV Ejection Fraction MOD BP 46.4 % >= 55 % LV Cardiac Index MOD BP 871.1 cm???/min???m??? LV Diastolic Volume MOD 4C 31.2 cm??? LV Systolic Volume MOD 4C 21.4 cm??? LV Ejection Fraction MOD 4C 31.5 % LV Cardiac Index MOD 4C 537.4 cm???/min???m??? LV Diastolic Length 4C 6.0 cm LV Systolic Length 4C 5.3 cm LV Diastolic Volume MOD 2C 36.1 cm??? LV Systolic Volume MOD 2C 14.6 cm??? LV Ejection Fraction MOD 2C 59.6 % LV Cardiac Index MOD 2C 1174.7 cm???/min???m??? LV Diastolic Length 2C 5.7 cm LV Systolic Length 2C 4.9 cm LA Volume 53.8 cm??? 18 - 58 / 22 - 52 cm??? LA Volume Index 32.3 cm???/m??? 16 - 28 cm???/m??? DOPPLER AV Peak Velocity 111.8 cm/s AV Peak Gradient 5.0 mmHg LVOT Peak Velocity 105.0 cm/s LVOT Peak Gradient 4.4 mmHg LVOT Velocity Time Integral 19.7 cm LVOT Stroke Volume 62.1 cm??? LVOT Stroke Volume Index 38.1 ml/m??? LVOT Cardiac Index 3390.4 cm???/min???m??? AV Area Cont Eq pk 3.0 cm??? MV Peak Velocity 162.5 cm/s MV Peak Gradient 10.6 mmHg MV Mean Velocity 77.8 cm/s MV Mean Gradient 3.2 mmHg MV Velocity Time Integral 35.5 cm MR Peak Velocity 396.5 cm/s MR Peak Gradient 62.9 mmHg Mitral E Point Velocity 154.9 cm/s Mitral A Point Velocity 36.2 cm/s Mitral E to A Ratio 4.3 MV Deceleration Time 157.5 ms MV E' Velocity 11.8 cm/s Mitral E to MV E' Ratio 13.1 TR Peak Velocity 278.6 cm/s TR Peak Gradient 31.0 mmHg Right Ventricular Systolic Press 36.0 mmHg PV Peak Velocity 126.9 cm/s PV Peak Gradient 6.4 mmHg FINDINGS Left Ventricle Normal LV size and wall thickness. Left ventricular ejection fraction is estimated at 50-55 %. No obvious regional wall motion abnormality. Right Ventricle Mild right ventricular dilatation. RVSP= 36mmHg. Right Atrium Mild right atrial dilatation. RA area= 17cm2 Left Atrium Moderate left atrial dilatation Mitral Valve Moderate Posterior mitral annulus calcification. No significant regurgitation Aortic Valve Trileaflet aortic valve. No aortic regurgitation. No aortic stenosis. Tricuspid Valve Structurally normal tricuspid valve. Pulmonic Valve Pulmonic valve not well visualized. Mild PI. Pericardium No effusion Aorta Normal size aortic root. CONCLUSIONS Normal LV size and systolic function. LVEF estimated at 55% No obvious regional wall motion abnormality Mild to moderate RV dilatation, RVSP at 36 mmHg Moderate LA dilatation Previewed by: Dr Vivek Mac (Electronically Signed) Final Date: 23 July 2023 18:41
--- NOTE | 2023-07-23 18:43 | P.PN ---
Subjective Progress Note Date: 07/23/23 Progress note: Patient is doing well from cardiac vessel standpoint. Her echo Showed a preserved LV size and systolic function. It did show [id number] RV dilatation and moderate left atrial dilatation. No major valvular abnormality but appreciated. PHYSICAL EXAM: VITAL SIGNS: Reviewed. GENERAL: Well-developed in no acute distress. HEENT: Head is normocephalic. Pupils are equal, round. Sclerae anicteric. Mucous membranes of the mouth are moist. Neck supple. No JVD or thyromegaly LUNGS: Respirations even and unlabored. Lungs essentially clear to auscultation bilaterally. HEART: Irregular rate and rhythm. S1 and S2 heard. ABDOMEN: Soft. Nondistended. Nontender. EXTREMITIES: Normal range of motion. No clubbing or cyanosis. Peripheral pulses intact. No lower extremity edema NEUROLOGIC: Awake and alert. Oriented x 3. ASSESSMENT: Urinary tract infection Pyelonephritis Leukocytosis Abnormal troponins, flat, likely secondary to infectious process, no evidence of acute coronary syndrome Persistent atrial fibrillation Coronary artery disease with previous stenting, 2010 Hyperlipidemia PLAN: Infectious disease and urology following. Continue antibiotics per ID service. An acute coronary event has been ruled out Continue Cardizem 180 mg daily Continue current dose of Eliquis 5 mg twice a day. Continue aspirin 81 mg daily. If patient has any issues with bleeding, may discontinue aspirin. Patient is stable from cardiac vessel standpoint. Cardiology team will sign off at this time. 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 out of [facility] Objective - Vital Signs Vital signs: Vital Signs Temp 98.2 F 07/23/23 15:42 Pulse 106 H 07/23/23 15:42 Resp 18 07/23/23 15:42 BP 133/65 07/23/23 15:42 Pulse Ox 93 L 07/23/23 15:42 FiO2 Intake & Output 07/22/23 07/23/23 07/23/23 18:59 06:59 18:59 Intake Total 335 540 120 Output Total 0 Balance 335 540 120 Intake: Oral 335 540 120 Output: Gastric Drainage 0 Urine 0 Stool 0 Urine/Stool Mix 0 Emesis 0 Oral Regurgitation 0 Other 0 Other: Voiding Method Toilet Diaper Diaper Diaper # Voids 0 # Bowel Movements 0 - Labs CBC & Chem 7: 07/23/23 11:11 07/23/23 11:11 Labs: Abnormal Lab Results - Last 24 Hours (Table) 07/23/23 07/23/23 Range/Units 11:11 11:11 Neutrophils # 8.8 H (1.3-7.7) k/uL Lymphocytes # 0.6 L (1.0-4.8) k/uL Sodium 136 L (137-145) mmol/L Carbon Dioxide 19 L (22-30) mmol/L BUN 19 H (7-17) mg/dL Glucose 109 H (74-99) mg/dL Calcium 7.8 L (8.4-10.2) mg/dL Microbiology - Last 24 Hours (Table) 07/21/23 12:06 Urine Culture - Preliminary Urine,Catheterized Gram Neg Bacilli 07/21/23 15:39 Blood Culture - Preliminary Blood 07/21/23 15:35 Blood Culture - Preliminary Blood
[2023-07-23] MEDS: PRAVASTATIN SODIUM 40 MG TAB PO SCH (20:30)
--- NOTE | 2023-07-24 01:17 | PN ---
PROGRESS NOTE DATE OF SERVICE: 07/23/2023 SUBJECTIVE: This 88-year-old woman who was admitted with hydronephrosis and pyelonephritis is being closely monitored at this time. Ureteral neoplasm was raised as a possibility in the CAT scan, but however Dr. Clark recommended continued followup and outpatient followup with gram-negative bacilli grown from the culture. Creatinine is stable. Troponins are noted. PAST MEDICAL HISTORY: Reviewed. REVIEW OF SYSTEMS: A 14-point review is negative except as mentioned earlier. CURRENT MEDICATIONS: Reviewed. PHYSICAL EXAMINATION: VITAL SIGNS: Pulse is 94, blood pressure 128/70, respirations 16. HEENT: Conjunctivae normal. NECK: No jugular venous distention. CARDIOVASCULAR: S1, S2 muffled. RESPIRATIONS: Diminished at the bases. ABDOMEN: Soft, minimal discomfort on the left side. NERVOUS SYSTEM: Nonfocal. LABORATORY DATA: Reviewed. ASSESSMENT: 1. Hydronephrosis and pyelonephritis, left. Rule out ureteral neoplasm per CAT scan. 2. Troponin 0.098. No acute coronary syndrome per Cardiology secondary to infectious process. 3. Possible acute urinary tract infection with gram-negative bacilli. 4. Atrial fibrillation. 5. Asthma. 6. Hyperlipidemia. 7. History of kidney stones. 8. History of ESBL. RECOMMENDATIONS AND DISCUSSION: Recommend to continue current management and treatment, otherwise at this time I will recommend repeat labs. Closely follow with Cardiology. Antiplatelet agents, anticoagulants. We will continue to monitor. The chest x-ray done yesterday showed no acute abnormality. Further recommendations to follow. See orders for details. MMODL / IJN: [id number] /
[2023-07-24] MEDS: ASPIRIN 81 MG PO SCH (09:11)
[2023-07-24] MEDS: CYANOCOBALAMIN 500 MCG TAB PO SCH (09:11)
[2023-07-24] MEDS: CHOLECALCIFEROL 25 MCG (1000 IU) TABLET PO SCH (09:11)
[2023-07-24] MEDS: ASCORBIC ACID 500 MG TAB PO SCH (09:12)
[2023-07-24] MEDS: APIXABAN 5 MG TAB PO SCH ×2 (09:12→20:19)
[2023-07-24] MEDS: DILTIAZEM CD 180 MG CAP.ER.24H PO SCH (09:12)
[2023-07-24 11:38] LABS: Basophils % (A) 0 %; Eosinophils # (A) 0.1 k/uL (0-0.7); Eosinophils % (A) 1 %; HCT 37.7 % (34.0-46.0); HGB 12.2 gm/dL (11.4-16.0); Lymphocytes # (A) 1.1 k/uL (1.0-4.8); Lymphocytes % (A) 6 %; MCH 32.7 pg (25.0-35.0); MCHC 32.3 g/dL (31.0-37.0); MCV 101.1 fL (80.0-100.0); Monocytes # (A) 0.7 k/uL (0-1.0); Monocytes % (A) 4 %; Neutrophils # (A) 15.5 k/uL (1.3-7.7); Neutrophils % (A) 88 %; Platelet Count 262 k/uL (150-450); RBC 3.73 m/uL (3.80-5.40); WBC 17.6 k/uL (3.8-10.6)
[2023-07-24] MEDS: SODIUM CHLORIDE 0.9% 1,000 ML IV SCH (12:12)
--- NOTE | 2023-07-24 12:13 | XR ---
EXAMINATION TYPE: XR chest 1V portable DATE OF EXAM: 07/24/2023 COMPARISON: 07/22/2023 INDICATION: Crackles and wheezes TECHNIQUE: Single frontal view of the chest is obtained. FINDINGS: The heart size is normal. The pulmonary vasculature is normal. Mild infiltrates at the left lung base. Correlate for atelectasis and pneumonia. Minimal effusion may be present. IMPRESSION: 1. Left basilar infiltrate. Small effusion may be present. Correlate for atelectasis and pneumonia.
[2023-07-24] MEDS ORDERED: IPRATROPIUM-ALBUTEROL 3 ML NEB INHALATION PRN (12:16)
[2023-07-24 12:21] LABS: African American GFR (CKD) 77 (>60 ml/min/1.73 sqM); Anion Gap 12 mmol/L; Blood Urea Nitrogen 15 mg/dL (7-17); Calcium 7.8 mg/dL (8.4-10.2); Carbon Dioxide 18 mmol/L (22-30); Chloride 106 mmol/L (98-107); Glucose 89 mg/dL (74-99); Non-African American GFR(CKD) 67 (>60 ml/min/1.73 sqM); Potassium 3.1 mmol/L (3.5-5.1); Sodium 136 mmol/L (137-145)
--- NOTE | 2023-07-24 12:38 | P.PN ---
Subjective Progress Note Date: 07/24/23 The patient's in the hospital with hematuria or urinary tract infection, pyelonephritis. She is found to have left-sided hydronephrosis. She is feeling better. Her culture is growing Klebsiella and she is on the appropriate antibiotic. Objective - Vital Signs Vital signs: Vital Signs Temp 98.2 F 07/24/23 09:02 Pulse 101 H 07/24/23 09:02 Resp 16 07/24/23 09:02 BP 124/70 07/24/23 09:02 Pulse Ox 97 07/24/23 09:02 FiO2 Intake & Output 07/23/23 07/24/23 07/24/23 18:59 06:59 18:59 Intake Total 120 120 Output Total 0 0 Balance 120 120 Intake: Oral 120 120 Output: Gastric Drainage 0 Urine 0 Stool 0 0 Urine/Stool Mix 0 Emesis 0 Oral Regurgitation 0 Other 0 Other: Voiding Method Diaper Diaper Diaper # Voids 1 1 3 # Bowel Movements 0 - Labs CBC & Chem 7: 07/24/23 10:38 07/24/23 10:38 Labs: Abnormal Lab Results - Last 24 Hours (Table) 07/24/23 07/24/23 Range/Units 10:38 10:38 WBC 17.6 H (3.8-10.6) k/uL RBC 3.73 L (3.80-5.40) m/uL MCV 101.1 H (80.0-100.0) fL Neutrophils # 15.5 H (1.3-7.7) k/uL Sodium 136 L (137-145) mmol/L Potassium 3.1 L (3.5-5.1) mmol/L Carbon Dioxide 18 L (22-30) mmol/L Calcium 7.8 L (8.4-10.2) mg/dL Microbiology - Last 24 Hours (Table) 07/21/23 12:06 Urine Culture - Final Urine,Catheterized Klebsiella pneumoniae 07/21/23 15:39 Blood Culture - Preliminary Blood 07/21/23 15:35 Blood Culture - Preliminary Blood Assessment and Plan Assessment: Impression: The patient has acute pyelonephritis. There is left-sided hydronephrosis that we'll need to be evaluated as an outpatient. I prefer that she continue with antibiotics so that when I do the evaluation the infection is less likely to be aggravated a little alone confusing for the cause of hematuria. From a urologic standpoint the patient can go home. I would like to see in the office in one to 2 weeks. Time with Patient: Greater than 30
--- NOTE | 2023-07-24 14:21 | P.PN ---
Subjective Progress Note Date: 07/23/23 Principal diagnosis: Reason for follow-up his complicated urinary tract infection Patient is a 88-year-old female with a past medical history significant for atrial fibrillation asthma hyperlipidemia SD pneumonia history of UTIs patient presenting to the hospital with lower abdominal pain, patient workup including CT of abdominal pelvis with evidence of moderate left-sided hydronephrosis, did have a positive UA and elevated white count concerning for complicated UTI. On today's evaluation that is 07/23/2023 the patient continues to be afebrile, the patient is breathing comfortably on room air and denies any shortness of breath, the patient denies chest pain or cough, patient denies abdominal pain, no nausea/vomiting or diarrhea. Patient white count normalized to 10.0, creatinine is 0.8, blood cultures so far pending urine gram-negative Objective - Vital Signs Vital signs: Vital Signs Temp 99.0 F 07/23/23 12:00 Pulse 84 07/23/23 12:00 Resp 18 07/23/23 12:00 BP 139/63 07/23/23 12:00 Pulse Ox 98 07/23/23 12:00 FiO2 Intake & Output 07/22/23 07/23/23 07/23/23 18:59 06:59 18:59 Intake Total 335 540 120 Output Total 0 Balance 335 540 120 Intake: Oral 335 540 120 Output: Gastric Drainage 0 Urine 0 Stool 0 Urine/Stool Mix 0 Emesis 0 Oral Regurgitation 0 Other 0 Other: Voiding Method Toilet Diaper Diaper Diaper # Voids 0 # Bowel Movements 0 - Exam GENERAL DESCRIPTION: An elderly female lying in bed in no distress RESPIRATORY SYSTEM: Unlabored breathing , clear to auscultation anteriorly HEART: S1 S2 regular rate and rhythm , ABDOMEN: Soft , no tenderness EXTREMITIES: No edema feet - Labs CBC & Chem 7: 07/24/23 10:38 07/24/23 10:38 Labs: Abnormal Lab Results - Last 24 Hours (Table) 07/23/23 07/23/23 Range/Units 11:11 11:11 Neutrophils # 8.8 H (1.3-7.7) k/uL Lymphocytes # 0.6 L (1.0-4.8) k/uL Sodium 136 L (137-145) mmol/L Carbon Dioxide 19 L (22-30) mmol/L BUN 19 H (7-17) mg/dL Glucose 109 H (74-99) mg/dL Calcium 7.8 L (8.4-10.2) mg/dL Microbiology - Last 24 Hours (Table) 07/21/23 12:06 Urine Culture - Preliminary Urine,Catheterized Gram Neg Bacilli 07/21/23 15:39 Blood Culture - Preliminary Blood 07/21/23 15:35 Blood Culture - Preliminary Blood Assessment and Plan (1) UTI (urinary tract infection) Current Visit: No Status: Acute Code(s): N39.0 - URINARY TRACT INFECTION, SITE NOT SPECIFIED SNOMED Code(s): 94264092 Plan: 1patient was in the hospital with left lower abdominal pain going on for 3 days patient noticed to have a elevated white count positive UA abnormal CT concerning for moderate left-sided hydronephrosis likely etiology of her pain and likely complicated UTI/pyelonephritis more likely pathogen will be the enteric gram-negative. 2patient white count has normalized, cultures are pending, patient to continue with Rocephin 2 g daily while waiting for the culture to finalize. at the bedside questions were answered Dictation was produced using [employer] dictation software. please excuse any grammatical, word or spelling errors. Time with Patient: Less than 30
--- NOTE | 2023-07-24 14:22 | P.PN ---
Subjective Progress Note Date: 07/24/23 Principal diagnosis: Reason for follow-up his complicated urinary tract infection Patient is a 88-year-old female with a past medical history significant for atrial fibrillation asthma hyperlipidemia PR pneumonia history of UTIs patient presenting to the hospital with lower abdominal pain, patient workup including CT of abdominal pelvis with evidence of moderate left-sided hydronephrosis, did have a positive UA and elevated white count concerning for complicated UTI. On today's evaluation that is 07/24/2023 the patient denies any fever or any chills, the patient denies shortness of breath chest pain or cough, the patient nausea/vomiting or diarrhea and no abdominal pain. Patient white count has jumped to 17.6 today, creatinine is 0.80, blood cultures so far negative urine culture with Klebsiella Objective - Vital Signs Vital signs: Vital Signs Temp 98.4 F 07/24/23 12:00 Pulse 102 H 07/24/23 12:00 Resp 16 07/24/23 12:00 BP 124/65 07/24/23 12:00 Pulse Ox 97 07/24/23 12:00 FiO2 Intake & Output 07/23/23 07/24/23 07/24/23 18:59 06:59 18:59 Intake Total 120 240 Output Total 0 0 Balance 120 240 Intake: Oral 120 240 Output: Gastric Drainage 0 Urine 0 Stool 0 0 Urine/Stool Mix 0 Emesis 0 Oral Regurgitation 0 Other 0 Other: Voiding Method Diaper Diaper Diaper # Voids 1 1 3 # Bowel Movements 0 - Exam GENERAL DESCRIPTION: An elderly female lying in bed in no distress RESPIRATORY SYSTEM: Unlabored breathing , clear to auscultation anteriorly HEART: S1 S2 regular rate and rhythm , ABDOMEN: Soft , no tenderness EXTREMITIES: No edema feet - Labs CBC & Chem 7: 07/24/23 10:38 07/24/23 10:38 Labs: Abnormal Lab Results - Last 24 Hours (Table) 07/24/23 07/24/23 Range/Units 10:38 10:38 WBC 17.6 H (3.8-10.6) k/uL RBC 3.73 L (3.80-5.40) m/uL MCV 101.1 H (80.0-100.0) fL Neutrophils # 15.5 H (1.3-7.7) k/uL Sodium 136 L (137-145) mmol/L Potassium 3.1 L (3.5-5.1) mmol/L Carbon Dioxide 18 L (22-30) mmol/L Calcium 7.8 L (8.4-10.2) mg/dL Microbiology - Last 24 Hours (Table) 07/21/23 12:06 Urine Culture - Final Urine,Catheterized Klebsiella pneumoniae 07/21/23 15:39 Blood Culture - Preliminary Blood 07/21/23 15:35 Blood Culture - Preliminary Blood Assessment and Plan (1) UTI (urinary tract infection) Current Visit: No Status: Acute Code(s): N39.0 - URINARY TRACT INFECTION, SITE NOT SPECIFIED SNOMED Code(s): 61980049 Plan: 1patient was in the hospital with left lower abdominal pain going on for 3 days patient noticed to have a elevated white count positive UA abnormal CT concerning for moderate left-sided hydronephrosis likely etiology of her pain and likely complicated UTI/pyelonephritis more likely pathogen will be the enteric gram-negative. 2patient urine culture did grew Klebsiella that is sensitive to ceftriaxone to continue, patient did have slight worsening of the white count and we will recheck a CBC and CRP with a.m. lab at the bedside questions were answered Dictation was produced using [employer] dictation software. please excuse any grammatical, word or spelling errors. Time with Patient: Less than 30
[2023-07-24] MEDS: IPRATROPIUM-ALBUTEROL 3 ML NEB INHALATION SCH ×2 (15:22→21:35)
[2023-07-24] MEDS ORDERED: Potassium Replacement Protocol 1 EACH MISC MISCELLANE PRN (16:16)
--- NOTE | 2023-07-24 16:23 | PN ---
PROGRESS NOTE DATE OF SERVICE: 07/24/2023 SUBJECTIVE: This is an 88-year-old woman, who was admitted with hydronephrosis and pyelonephritis, complaining of some back pain and also hematuria. I had a detailed discussion with Dr. Clark, who recommended outpatient cystoscopy and evaluation. The patient also had some cough. The chest x-ray did not show much abnormality; but however, I am going to add bronchodilators to current regimen. PAST MEDICAL HISTORY: Reviewed. REVIEW OF SYSTEMS: Fourteen-point review is negative except as mentioned earlier. CURRENT MEDICATIONS: Reviewed include DuoNeb. Doses and rest of the medications are noted. PHYSICAL EXAMINATION: VITAL SIGNS: Pulse 101, blood pressure 124/70, respirations 16. HEENT: Conjunctivae are normal. NECK: No jugular venous distention. CARDIOVASCULAR: S1 and S2 muffled. RESPIRATORY: Breath sounds diminished at the bases. Bilateral scattered rhonchi and crackles. ABDOMEN: Soft. NERVOUS SYSTEM: Nonfocal. LABORATORY DATA: Reviewed. Chest x-ray reviewed personally. ASSESSMENT: 1. Hydronephrosis and pyelonephritis, left. Rule out ureteral neoplasm per CAT scan. 2. Troponin 0.098. No acute coronary syndrome per Cardiology. Secondary to infectious process. 3. Acute urinary tract infection with Klebsiella pneumoniae. 4. Atrial fibrillation. 5. Asthma. 6. Hyperlipidemia. 7. History of kidney stones. 8. History of extended-spectrum beta-lactamase. RECOMMENDATIONS: Recommend to continue current medications. Continue symptomatic treatment. Otherwise, continue with antibiotics. Cultures are mentioned earlier. The Klebsiella is rather sensitive. Otherwise, I would also recommend a course of bronchodilators. Incentive spirometry. Continue with DVT prophylaxis. Closely follow with Urology. Guarded prognosis. Further recommendations to follow. MMODL / IJN: [id number] /
[2023-07-24] MEDS: POTASSIUM CHLORIDE ER 20 MEQ TAB.ER PO SCH ×2 (17:03→17:59)
[2023-07-24] MEDS: PRAVASTATIN SODIUM 40 MG TAB PO SCH (20:19)
[2023-07-24] MEDS ORDERED: POTASSIUM CHLORIDE ER 20 MEQ TAB.ER PO STA (21:17)
[2023-07-25 06:59] LABS: Basophils % (A) 0 %; Eosinophils # (A) 0.2 k/uL (0-0.7); Eosinophils % (A) 2 %; HCT 34.2 % (34.0-46.0); HGB 11.3 gm/dL (11.4-16.0); Lymphocytes # (A) 0.9 k/uL (1.0-4.8); Lymphocytes % (A) 10 %; MCH 32.8 pg (25.0-35.0); MCV 99.3 fL (80.0-100.0); Monocytes # (A) 0.4 k/uL (0-1.0); Monocytes % (A) 4 %; Neutrophils # (A) 7.7 k/uL (1.3-7.7); Neutrophils % (A) 82 %; Platelet Count 296 k/uL (150-450); RBC 3.44 m/uL (3.80-5.40); RDW 13.1 % (11.5-15.5); WBC 9.4 k/uL (3.8-10.6)
[2023-07-25] MEDS: IPRATROPIUM-ALBUTEROL 3 ML NEB INHALATION SCH ×2 (07:45→12:03)
[2023-07-25 08:03] LABS: African American GFR (CKD) 77 (>60 ml/min/1.73 sqM); Anion Gap 9 mmol/L; Blood Urea Nitrogen 14 mg/dL (7-17); Calcium 7.9 mg/dL (8.4-10.2); Carbon Dioxide 19 mmol/L (22-30); Chloride 110 mmol/L (98-107); Glucose 104 mg/dL (74-99); Non-African American GFR(CKD) 66 (>60 ml/min/1.73 sqM); Sodium 138 mmol/L (137-145)
[2023-07-25 08:33] LABS: C Reactive Protein 16.5 mg/dL (<1.0)
[2023-07-25] MEDS: ASCORBIC ACID 500 MG TAB PO SCH (09:17)
[2023-07-25] MEDS: ASPIRIN 81 MG PO SCH (09:17)
[2023-07-25] MEDS: CYANOCOBALAMIN 500 MCG TAB PO SCH (09:18)
[2023-07-25] MEDS: DILTIAZEM CD 180 MG CAP.ER.24H PO SCH (09:18)
[2023-07-25] MEDS: APIXABAN 5 MG TAB PO SCH (09:18)
[2023-07-25] MEDS: CHOLECALCIFEROL 25 MCG (1000 IU) TABLET PO SCH (09:18)
[2023-07-25 11:38] VITALS: RESP 16
[2023-07-25 15:12] VITALS: BP 102/63; PULSE 93; TEMP 98.2
--- NOTE | 2023-07-26 00:02 | DS ---
DISCHARGE SUMMARY FINAL DIAGNOSES: 1. Hydronephrosis and pyelonephritis left, rule out ureteral neoplasm per CT scan. 2. Troponin 0.098, no acute coronary syndrome per Cardiology secondary to infectious process. 3. Acute urinary tract infection with Klebsiella pneumonia. 4. Atrial fibrillation. 5. Asthma. 6. Hyperlipidemia. 7. History of kidney stones. 8. History of ESBL organism previously. DISCHARGE DISPOSITION: The patient will be discharged in stable condition. Guarded prognosis on discharge. Cleared by Infectious Disease and Urology and Cardiology. HISTORY OF PRESENT ILLNESS: This is an 88-year-old woman with a past medical history of multiple medical problems, admitted with hydronephrosis and multiple complications as mentioned earlier. The patient was treated symptomatically, improved significantly. Dr. Clark has seen the patient and have discussed with Dr. Clark extensively and we will follow up in outpatient setting and possibly scope in the outpatient. PHYSICAL EXAMINATION: n CARDIOVASCULAR: S1, S2. ABDOMEN: Soft. NERVOUS SYSTEM: No focal deficits. The patient will be discharged in a stable condition. Guarded prognosis. I would recommend to resume the home medications. Follow up with primary physician. Follow up with Urology. Followup with Infectious Disease advice and Ceftin 500 mg p.o. b.i.d. for 14 days. MMODL / IJN: [id number] / ELKIN
== END 2023-07-25 15:58 | disposition home or self-care (01) | DRG 690 ==
LOC: EC 09:45 → 3SCARD 14:38 → 4SSUR 07-25 10:25
PROVIDERS: ADMIT Hospitalist; ATTEND Hospitalist
DX: N13.6 Pyonephrosis (principal); I24.9 Acute ischemic heart disease, unspecified; I48.19 Other persistent atrial fibrillation; B96.1 Klebsiella pneumoniae [K. pneumoniae] as the cause of diseases classified elsewhere; E78.5 Hyperlipidemia, unspecified; I25.10 Atherosclerotic heart disease of native coronary artery without angina pectoris; I25.2 Old myocardial infarction; J45.909 Unspecified asthma, uncomplicated; Z87.01 Personal history of pneumonia (recurrent); Z87.440 Personal history of urinary (tract) infections; R32 Unspecified urinary incontinence; Z79.01 Long term (current) use of anticoagulants; Z79.82 Long term (current) use of aspirin; Z79.83 Long term (current) use of bisphosphonates; Z79.899 Other long term (current) drug therapy; Z82.49 Family history of ischemic heart disease and other diseases of the circulatory system; Z86.19 Personal history of other infectious and parasitic diseases; Z87.442 Personal history of urinary calculi; Z95.5 Presence of coronary angioplasty implant and graft; Z96.653 Presence of artificial knee joint, bilateral; Z11.52 Encounter for screening for COVID-19; Z88.5 Allergy status to narcotic agent; Z88.0 Allergy status to penicillin; Z91.81 History of falling
CPT/HCPCS: 36415; 71045; 74177; 80048; 80053; 81001; 82150; 83605; 83690; 83735; 84132; 84484; 85025; 85610; 85730; 86140; 87040; 87077; 87086; 87186; 87636; 93005; 93306; 94640; 96361; 96365; 96366; 96375; 99285

== ENCOUNTER → 2023-08-17 | Outpatient (CLI) | payer MEDICARE ==
[2023-08-17 15:05] LABS: African American GFR (CKD) >90 (>60 ml/min/1.73 sqM); Blood Urea Nitrogen 16 mg/dL (7-17); Non-African American GFR(CKD) 79 (>60 ml/min/1.73 sqM)
--- NOTE | 2023-08-25 00:07 | CT ---
EXAMINATION TYPE: CT urogram wo/w con CT DLP: 1436.7 mGycm, Automated exposure control for dose reduction was used. DATE OF EXAM: 08/17/2023 4:21 PM COMPARISON: CT abdomen pelvis 07/21/2023 CLINICAL INDICATION:Female, 88 years old with history of N13.30 HYDRONEPHROSIS; PHH, incontinence, hy dronephrosis of left kidney TECHNIQUE: CT urogram with imaging of the abdomen and pelvis per facility protocol. Coronal and sagittal reforma ts were performed. 2D and 3D reconstructions are performed to assist visualization of the urinary tra ct on a separate workstation. Contrast used:80 cc with saline mL of Isovue 300 without and with IV Contrast, Oral contrast used: None. FINDINGS: LOWER CHEST: Included lung bases are clear. Heart appears mildly enlarged with suggestion of small pe ricardial effusion. Partially seen coronary artery calcifications.. GENITOURINARY: RIGHT KIDNEY AND URETER: A few small calcifications along the periphery of the renal sinus fat, large st inferiorly measures up to 4 mm. Mildly prominent right renal pelvis with non dilatation of the ure ter, no ureteral calculi are seen. Ureteric jet is seen in the bladder on delayed imaging. No definit e evidence of abnormal enhancing mass or urothelial enhancement involving the right kidney. There are stable hypodense exophytic renal nodules, the largest 1.7 cm anteriorly and 1.3 cm posterolaterally, consistent with cysts. LEFT KIDNEY AND URETER: A 2 mm calculus in the inferior pole, otherwise no renal calculi are seen. Po stcontrast, there is a small round low-attenuation nodule from the mid left kidney likely to be a cys t. Another small presumed cyst from the anterior kidney in its lower pole. No definite enhancing laci l mass. There is moderate distention of the left renal pelvis which appears somewhat less than before and the urothelial enhancement in the region of the renal pelvis has diminished. While the renal pel vis is dilated, the upper ureter does not appear to be and within the proximal ureter there is the busby ggestion of mild urothelial enhancement with narrowing of the ureteral lumen. On delayed imaging, con trast is seen in the renal pelvis and contains some small filling defects suggestive of nonspecific d ebris. Contrast eventually extends into the ureter which is segmentally seen but courses anterior and medial to an irregular apparent fluid collection located medial and inferomedial to the left kidney. The perinephric and periureteral fluid seen on the prior exam appears diminished, and this fluid col lection appears to be in the general region. The collection has a somewhat lobulated jagged irregular border which appears to mildly enhance, and is somewhat elongated craniocaudally measuring up to abo ut 5.1 cm craniocaudal and at most 2.1 x 1.5 cm axially. This now seems to be a walled-off fluid mel ection, whereas previously the fluid in the area appeared to be free. The ureter is segmentally seen on the delayed phase imaging, but appears to course around this lesion anteriorly before descending m ore medially within the abdomen and pelvis. This remains diminutive in caliber from the UPJ to the le kemal of the upper bony pelvis, thereafter the ureter appears of relatively normal caliber and patent t o the bladder. URINARY BLADDER: Unremarkable precontrast without evidence of calculi. Postcontrast, as the bladder s equentially fills with excreted opacified urine, the right ureteral jet is seen but the left is not, this might be a function of relatively delayed excretion/prolonged transit on the left side for the a abran reasons. There is no definite bladder mass or other intraluminal filling defects seen. REPRODUCTIVE: Unremarkable uterus. The presumed ovaries are unremarkable but not well evaluated with CT. No adnexal mass is seen.. Multiple pelvic phleboliths. ABDOMEN LIVER: Unremarkable. GALLBLADDER AND BILE DUCTS: Unremarkable PANCREAS: Unremarkable. SPLEEN: Unremarkable. ADRENAL GLANDS: Unremarkable. STOMACH AND BOWEL: Limited without enteric contrast. No evidence of bowel obstruction. Moderate stool throughout the colon. In the sigmoid are multiple diverticula without clear evidence of acute divert iculitis. Appendix is not seen with certainty, but no inflammatory process is seen in the right lower quadrant. Rectum demonstrates moderate gaseous distention. PERITONEUM: No evidence of pneumoperitoneum, free fluid, or adenopathy. VASCULATURE: Moderate calcification of the aorta and branches without AAA or high-grade stenosis seen . MUSCULOSKELETAL: Generalized osteopenia. No clearly acute bony abnormality. Moderate multilevel degen erative changes with mild/moderate S-shaped lumbar curvature. LYMPH NODES: No gross evidence for lymphadenopathy. SOFT TISSUE/ABDOMINAL WALL: Mild body wall edema. Tiny fat-containing umbilical hernia with mild soft tissue thickening along its superficial aspect. IMPRESSION: Right kidney/ureter: 1. Right kidney contains a few small nonobstructing calcifications along the periphery of the renal sinus fat, largest inferiorly measures up to 4 mm. 2. Mildly prominent right renal pelvis with non-dilatation of the ureter, may suggest an element of UPJ stenosis. No definite evidence of abnormal enhancing mass or urothelial enhancement involving the right kidney/ureter. 3. Stable hypodense exophytic right renal nodules, the largest 1.7 CM, consistent with cysts. Left kidney/ureter: 1. Left kidney contains a 2 mm calculus in the inferior pole. 2. A couple small left renal cortical hypodensities, likely cysts. 3. Moderate distention of the left renal pelvis, appears somewhat less than before and the urothelia l enhancement in the region of the renal pelvis has diminished. 4. While the renal pelvis is distended, the upper ureter does not appear to be and within the proxim al ureter there is the suggestion of mild urothelial enhancement with narrowing of the ureteral lumen . Stricture due to infectious/inflammatory process, or even neoplasm, is considered. 5. On delayed imaging, contrast is seen in the renal pelvis and contains some small filling defects suggestive of nonspecific debris. This could be correlated with urinalysis. 6. Contrast eventually extends into the more distal left ureter which is segmentally seen but course s anterior and medial to an apparent irregular fluid collection located medial and inferomedial to th e left kidney; no extravasated urine within the collection is demonstrated at any point. The perineph ewa and periureteral free fluid seen on the prior exam appears diminished, and this fluid collection is in the same general region. Likely considerations include evolving urinoma and abscess. 7. Left ureter remains diminutive in caliber from the UPJ to the level of the upper bony pelvis, the reafter the ureter appears of relatively normal caliber and patent to the bladder. Again, stricture d ue to infectious/inflammatory process, or even neoplasm, is considered. Urinary bladder: 1. Bladder is essentially unremarkable, without evidence of calculi or intraluminal defects/mass. 2. The right ureteral jet is seen but the left is not, this might be a function of relatively delaye d excretion/prolonged transit on the left side for the above reasons. Other: 1. Small sliding hiatal hernia and colonic diverticular disease redemonstrated.
== END | disposition home or self-care (01) ==
LOC: RADCTMAIN 14:15
PROVIDERS: ATTEND Urology
DX: N13.2 Hydronephrosis with renal and ureteral calculous obstruction (principal); N13.30 Unspecified hydronephrosis; K44.9 Diaphragmatic hernia without obstruction or gangrene; K57.30 Diverticulosis of large intestine without perforation or abscess without bleeding; R31.0 Gross hematuria
CPT/HCPCS: 82565; 84520; 74178; 36415; 74400; Q9967